=== PATIENT | female | born 1945 | race Caucasian/White ===

== ENCOUNTER 2018-05-27 00:52 | Outpatient (CLI) | payer MEDICARE, SELFPAY ==
--- NOTE | 2018-05-27 09:50 | DI.MAMMO_ITS ---
SYMPTOM/DIAGNOSIS: SCREENING, Z12.31 MAMMOGRAM: Mammograms were interpreted according to the usual protocol including computer analysis with CAD system, tomosynthesis and C view imaging. Comparison with prior examinations. Breast density C. No suspicious masses or microcalcifications are seen. There is no definite evidence of malignancy. IMPRESSION: Negative mammogram. Routine screening is recommended. Category I. MQSA ASSESSMENT OF FINDINGS: Negative. Category 1. Patient will receive a letter notifying them of these results. Bi-RADS category C. The breasts are heterogeneously dense, which may obscure small masses.
== END 2018-05-27 01:12 ==
PROVIDERS: PCP Family Medicine; Visit Provider Nurse Practitioner Family
DX: Z12.31 Encounter for screening mammogram for malignant neoplasm of breast (principal)
CPT/HCPCS: 77063; 77067

== ENCOUNTER 2020-06-09 16:30 | Outpatient (REF) | payer MEDICARE, SELFPAY ==
[2020-06-09 22:20] LABS: HCT 39.8 % (36.0-46.0); HGB 13.2 g/dL (11.2-15.7); MCH 33.2 pg (27.0-33.0); MCHC 33.2 % (32.0-36.0); MPV 10.5 fL (8.0-11.0); Platelet Count 248 10^3/uL (130-400); RBC 3.98 10^6/uL (3.93-5.22); RDW 12.1 % (11.7-14.6); RDW-SD 45.1 fL; WBC 5.93 10^3/uL (4.4-10.8)
[2020-06-09 22:25] LABS: ALT 28 U/L (14-59); AST 18 U/L (15-37); Albumin 3.9 g/dL (3.4-5.0); Alkaline Phosphatase 88 U/L (46-116); Anion Gap 10.2 mmol/L (3-11); BUN 22 mg/dL (7-18); Bilirubin, Total 0.3 mg/dL (0.2-1.0); CO2 25.8 mmol/L (21.0-32.0); CREATININE 1.12 mg/dL (0.55-1.02); Calcium 9.2 mg/dL (8.5-10.1); Calculated LDL 110 mg/dL (<100); Chloride 104 mmol/L (98-107); Cholesterol 225 mg/dL (<200); Estimated GFR 47.82 (mL/min/1.73m2); Glucose 94 mg/dL (74-106); HDL Cholesterol 89 mg/dL (40-60); Potassium 4.4 mmol/L (3.5-5.1); Sodium 140 mmol/L (136-145); Total Protein 7.2 g/dL (6.4-8.2); Triglyceride 134 mg/dL (<150)
[2020-06-10 04:52] LABS: Vitamin D 25 Total 53.1 ng/ml (30-100)
== END 2020-06-09 16:50 ==
LOC: NCHCN 16:30
PROVIDERS: PCP Family Medicine; Visit Provider Family Medicine
DX: E78.00 Pure hypercholesterolemia, unspecified (principal); R03.0 Elevated blood-pressure reading, without diagnosis of hypertension; G47.62 Sleep related leg cramps; M85.88 Other specified disorders of bone density and structure, other site; J45.20 Mild intermittent asthma, uncomplicated
CPT/HCPCS: 80053; 80061; 82306; 85027

== ENCOUNTER 2020-06-24 01:25 | Outpatient (CLI) | payer MEDICARE, SELFPAY ==
--- NOTE | 2020-06-24 | DI.MAMMO_ITS ---
EXAM: MG MAMMO SCREENING CLINICAL HISTORY: SCREENING, Z12.31 TECHNIQUE: Bilateral full field digital CC and MLO mammographic images were obtained with 3D tomosyn thesis and utilizing computer aided detection (CAD). COMPARISON: Available for comparison. FINDINGS: Masses/Architectural Distortion: None seen. Microcalcifications: No suspicious pleomorphic-type are seen. Skin Thickening/Nipple Retraction: None. IMPRESSION: 1. No significant interval change with no specific features of malignancy noted. 2. Unless there is more urgent need, screening mammography is recommended, as per [employer] guidelines. BI-RADS Category 1 - Negative Breast Density - Category C - Heterogeneously dense Breast density category C or D implies that the patient has dense breast tissue. Dense breast tissue is very common and is not abnormal but dense breast tissue can make it harder to find cancer on a ma mmogram. Also, dense breast tissue may increase their breast cancer risk. This information about the result of the mammogram report was provided to the patient to raise their awareness. Use this report when you speak with the patient about their risks for breast cancer, which includes their family hist ory. At that time, you may recommend for more screening tests (Ultrasound or MRI) as they might be us eful based on their risk. A negative radiographic report should not delay biopsy if a dominant or clinically suspicious mass is present. Up to ten percent of cancers are not identified on mammography. A negative report may reinforce clinical impression. Adenosis and dense breasts may obscure an underlying neoplasm. False positive reports average 6 to 10%. Patient will receive a letter notifying them of these results.
== END 2020-06-24 01:26 | disposition home or self-care (01) ==
LOC: DI 01:26
PROVIDERS: PCP Family Medicine; Visit Provider Family Medicine
DX: Z12.31 Encounter for screening mammogram for malignant neoplasm of breast (principal)
CPT/HCPCS: 77063; 77067

== ENCOUNTER 2020-08-13 03:58 | Outpatient (CLI) | payer MEDICARE, SELFPAY ==
--- NOTE | 2020-08-13 | DI.RAD_ITS ---
EXAM: XR CERVICAL SPINE COMP 4-5V CLINICAL HISTORY: NECK PAIN, M54.2 TECHNIQUE: COMPARISON: No exams were available for comparison FINDINGS: Five views were obtained. There is disc space narrowing at C5-6 and C6-7 consistent with disc degene ration. There are prominent hypertrophic degenerative changes of the facet joints throughout the cer vical region. Endplate hypertrophic changes also seen in the lower cervical spine. There is mild an tro listhesis of C4 on C5 estimated at 3-4 millimeters. There is no evidence of perched facet or fac et dislocation. No other focal bony abnormality seen. Neural foramina appear well maintained as visualized. IMPRESSION: Degenerative changes of the cervical spine as described above. RADIATION DOSE DELIVERED: Total DLP
== END 2020-08-13 04:18 ==
PROVIDERS: PCP Family Medicine; Visit Provider Family Medicine
DX: M54.2 Cervicalgia (principal); M50.322 Other cervical disc degeneration at C5-C6 level; M50.323 Other cervical disc degeneration at C6-C7 level
CPT/HCPCS: 72050

== ENCOUNTER 2022-10-02 17:45 | Outpatient (REF) | payer MEDICARE, SELFPAY ==
[2022-10-02 15:53] LABS: Anion Gap 3.6 mmol/L (3-11); BUN 16 mg/dL (7-18); CO2 28.4 mmol/L (21.0-32.0); CREATININE 0.8 mg/dL (0.55-1.02); Calcium 9.7 mg/dL (8.5-10.1); Chloride 105 mmol/L (98-107); Estimated GFR 76.79 (mL/min/1.73m2); Glucose 91 mg/dL (74-106); Sodium 137 mmol/L (136-145)
[2022-10-02 16:55] LABS: Bilirubin Negative (Negative); Blood Negative (Negative); Clarity Clear (Clear); Glucose Negative (Negative); Ketones Negative (Negative); Leukocyte Esterase Small (Negative); Nitrite Negative (Negative); Specific Gravity 1.015 (1.005-1.025); Urobilinogen 0.2 mg/dL (Up to 0.2)
[2022-10-02 17:35] LABS: Bacteria Rare HPF (Negative); C & S Indicated? Yes; Casts Negative LPF (Negative); Crystals Negative HPF (Negative); Epithelial Cells Rare HPF (Negative); Mucus Negative (Negative); Other Cells Rare Transitional (Negative); RBC Negative HPF (0-2)
== END 2022-10-02 17:46 | disposition home or self-care (01) ==
LOC: NCHCN 17:45
PROVIDERS: PCP Family Medicine; Visit Provider Internal Medicine
DX: I10 Essential (primary) hypertension (principal); R82.998 Other abnormal findings in urine
CPT/HCPCS: 80048; 81003; 81015; 87086

== ENCOUNTER 2022-12-05 01:35 | Outpatient (CLI) | payer MEDICARE, SELFPAY ==
--- NOTE | 2022-12-05 12:00 | DI.MAMMO_ITS ---
Exam(s) MAMMO SCREENING EXAM: MAMMO SCREENING CLINICAL HISTORY: SCREENING, Z12.31 TECHNIQUE: Bilateral full field digital CC and MLO mammographic images were obtained with 3D tomosyn thesis and utilizing computer aided detection (CAD). COMPARISON: Available for comparison. FINDINGS: Masses/Architectural Distortion: None seen. Microcalcifications: No suspicious pleomorphic-type are seen. Skin Thickening/Nipple Retraction: None. IMPRESSION: 1. No significant interval change with no specific features of malignancy noted. 2. Unless there is more urgent need, screening mammography is recommended, as per [employer] guidelines. BI-RADS Category 1 - Negative Breast Density - Category C - Heterogeneously dense Breast density category C or D implies that the patient has dense breast tissue. Dense breast tissue is very common and is not abnormal but dense breast tissue can make it harder to find cancer on a ma mmogram. Also, dense breast tissue may increase their breast cancer risk. This information about the result of the mammogram report was provided to the patient to raise their awareness. Use this report when you speak with the patient about their risks for breast cancer, which includes their family hist ory. At that time, you may recommend for more screening tests (Ultrasound or MRI) as they might be us eful based on their risk. A negative radiographic report should not delay biopsy if a dominant or clinically suspicious mass is present. Up to ten percent of cancers are not identified on mammography. A negative report may reinforce clinical impression. Adenosis and dense breasts may obscure an underlying neoplasm. False positive reports average 6 to 10%. Patient will receive a letter notifying them of these results.
== END 2022-12-05 01:55 ==
LOC: DI 01:35
PROVIDERS: PCP Family Medicine; Visit Provider Family Medicine
DX: Z12.31 Encounter for screening mammogram for malignant neoplasm of breast (principal)
CPT/HCPCS: 77063; 77067

== ENCOUNTER 2023-01-15 14:28 | Emergency (ER) | payer MEDICARE, SELFPAY ==
[2023-01-15 14:33] VITALS: BP 146/67; PULSE 84; RESP 18; TEMP 37.3; O2SAT 93
--- NOTE | 2023-01-15 14:45 | DI.RAD_ITS ---
Exam(s) XR HIP LT COMPLETE AP PELVIS XR FEMUR LT EXAM: XR HIP LT COMPLETE AP PELVIS INDICATION: fall hip and pelvis pain. COMPARISON: CR PELVIS AP from 06/20/2012 CR XR FEMUR LT from 01/15/2023 TECHNIQUE: 2D digital imaging was performed. Three views. FINDINGS: There is a left hip prosthesis which appears intact. There is no evidence of fracture. The knee is unremarkable as visualized. The SI joints appear intact. Degenerative changes are noted right SI juanis int. Intramedullary sepideh sepideh in the right femur partially visualized. Severe degenerative changes lo wer lumbar spine. IMPRESSION: No acute abnormality. DATA REPOSITORY: RADIATION DOSE DELIVERED:
--- NOTE | 2023-01-15 16:32 | W.ED.GENAD ---
Discharge Plan Disposition Patient Disposition: Home Discharge Details Clinical Impression: Injury of hip, left Primary Care Provider: Shirley Peña ED Provider: Ye Vega Home Meds and New Rx's Prescriptions: Continued triamcinolone acetonide 0.1 % cream 1 applic topical BID albuterol sulfate [ProAir HFA] 90 mcg/actuation HFA aerosol inhaler 2 puff inhalation Q6H PRN magnesium citrate 100 mg capsule 200 mg PO DAILY Rx Instructions: 200mg at bedtime omeprazole 20 mg capsule,delayed release(DR/EC) 20 mg PO DAILY 30 Days Qty: 30 0RF cholecalciferol (vitamin D3) [Vitamin D3] 1,000 UNIT capsule 1,000 unit PO DAILY Glucosamine-Chondroitin Complx Capsule 2 cap PO DAILY fluticasone propionate [Flovent HFA] 110 mcg/actuation HFA aerosol inhaler 110 mcg Inhalation BID PRN losartan-hydrochlorothiazide 50-12.5 mg tablet 1 tab PO DAILY Discontinued lisinopril 10 mg tablet 10 mg PO DAILY Patient Comments: not taking anymore Discharge Instructions Instructions: Hip Pain (ED) Additional Instructions: You may continue to use dlib-xli-fbozhvc pain medication as needed for discomfort. Please use walker until you are able to fully perform weightbearing activities without discomfort. If not improving in the next week or so please follow-up with your primary care provider for reassessment or return for new or worsening symptoms Referrals: Shirley Peña [Primary Care Provider] - 1 week (If not improving) Discharge Data Discharge Date/Time-TO BE ENTERED AT DEPARTURE: 01/15/23 16:52 Medical Decision Making Patient presenting to the emergency department for chief complaint of slip apples with falling landing on left hip. Patient denies any other injury or trauma. Does state history of a left hip replacement 11 years ago but denies no complications. Physical exam shows tenderness with weightbearing activities but no tenderness to palpation while patient is lying flat and resting. Given that patient is nonweightbearing we will perform radiological imaging. Patient denies any need for pain medication pending results Review of radiological imaging and radiologist interpretation shows no acute abnormalities noted. Patient recommended to continue to use dclr-nze-xucnjur pain medication and patient was sent home with a walker for stability and to help prevent reinjury or falling again. Patient to follow-up with primary care provider if not improving or return for new or worsening symptoms. After discussion of diagnosis and plan of care patient has no further needs, questions, or concerns and states clear understanding to return to the emergency department for any worsening symptoms. This documentation was generated using [employer] system, please disregard any oddities of phrase or misspellings. HPI General Mode of arrival: wheelchair. Date/Time Provider Initiated Documentation: 01/15/23 14:48. Limitations to Documentation: no limitations. Information obtained by: patient, family and RN notes reviewed. History of Present Illness 77 year old F presents to the emergency department with the chief complaint of Left hip pain, described as moderate and severe, Quality is described as sharp, and is localized to the left and lower extremity. Patient reports no radiation. Patient started experiencing this hour(s) (1) and it has been constant. No relieving factors improve symptom(s), No exacerbating factors reported . Patient notes no other symptoms.. Patient did receive the following treatments prior to arrival, none Related Data Home Medications Medication Instructions Recorded Confirmed cholecalciferol (vitamin D3) 25 1,000 unit PO DAILY 08/27/15 01/15/23 mcg (1,000 unit) capsule (Vitamin D3) albuterol sulfate 90 mcg/actuation 2 puff inhalation Q6H PRN 11/24/20 01/15/23 aerosol inhaler (ProAir HFA) fluticasone propionate 110 110 mcg inhalation BID PRN 11/24/20 01/15/23 mcg/actuation HFA aerosol inhaler (Flovent HFA) [id number] C-Mn 2 cap PO DAILY 11/24/20 01/15/23 capsule (Glucosamine-Chondroitin Complex capsule) magnesium citrate 100 mg capsule 200 mg PO DAILY 11/24/20 01/15/23 triamcinolone acetonide 0.1 % 1 applic topical BID 11/24/20 01/15/23 topical cream omeprazole 20 mg capsule,delayed 20 mg PO DAILY 30 days #30 caps 01/03/23 01/15/23 release losartan 50 mg-hydrochlorothiazide 1 tab PO DAILY 01/15/23 01/15/23 12.5 mg tablet Previous Rx's Medication Instructions Recorded omeprazole 20 mg capsule,delayed 20 mg PO DAILY 30 days #30 caps 01/03/23 release Allergies Allergy/AdvReac Type Severity Reaction Status Date / Time bacitracin Allergy Verified 01/15/23 14:36 [From Neosporin ([id number])] neomycin Allergy Verified 01/15/23 14:36 [From Neosporin ([id number])] polymyxin B Allergy Verified 01/15/23 14:36 [From Neosporin ([id number])] General Stated Complaint: Orthopedic VANDANA: 3 Review of Systems Constitutional Constitutional: Denies daytime sleepiness and Denies headache(s) Eyes Eyes: Denies change in vision ENT Ears, Nose, Mouth, and Throat: Denies headache(s) Cardiovascular Cardiovascular: Denies chest pain, Denies syncope and Denies dyspnea Respiratory Respiratory: Denies dyspnea Gastrointestinal Gastrointestinal: Denies abdominal pain, Denies nausea and Denies vomiting Musculoskeletal Musculoskeletal: Reports as per HPI, Reports arthralgias, Reports limited range of motion, Denies numbness and Denies tingling Integumentary/Breasts Skin/Breast: Denies unusual bruising and Denies wounds Neurologic Neurologic: Denies syncope, Denies headache(s), Denies numbness and Denies tingling PFSH All Active Problems Injury of hip, left (Acute) GERD (gastroesophageal reflux disease) (Chronic) Medical History Abnormal auditory perception Asthma, mild intermittent Femur fracture, right Hoarseness HTN (hypertension) Hypercholesterolemia Leg cramps Neck pain Osteoarthritis of left hip Pain, joint, knee, right Sensorineural hearing loss Surgical History Colonoscopy - IV Sedation (12/08/15) H/O total hip arthroplasty left hip History of removal of skin mole Tubal Ligation, Laparoscopic Family History Mother Asthma Father Heart disease Social History Smoking/Tobacco Use Status: Former Tobacco Use Smoking risk assessment performed?: Yes Alcohol Intake: current Alcohol Intake frequency: 0-2 drinks per day Drug use: Never Substance use type: does not use Household members: spouse Housing: house Number of Children: 2 current occupation: Retired What type of physical activity do you participate in: walking and independent ambulation Exam Const General: cooperative, no acute distress and not ill appearing Orientation: alert, awake and oriented x3 HENMT Mouth: moist mucous membranes Resp Effort & Inspection: normal respiratory effort, able to speak in complete sentences and no respiratory distress Cardio Rate: regular rate Rhythm: regular rhythm Skin General skin exam: no rashes or lesions noted Neuro General: patient alert, patient awake, patient oriented x3, moves all extremities and no focal motor deficits Sensory Exam: no sensory deficits noted Extrem Left lower extremity: hip/thigh Details: normal to inspection and other (Tenderness with); no tenderness, no ecchymosis and no crepitus Course Vital Signs Vital signs: Vital Signs Temperature 37.3 C 01/15/23 14:33 Pulse 84 01/15/23 14:33 Respiratory Rate 18 01/15/23 14:33 Blood Pressure 146/67 H 01/15/23 14:33 Pulse Oximetry 93 01/15/23 14:33 Temperature 37.3 C 01/15/23 14:33 Temperature Source Temporal Artery Scan 01/15/23 14:33 Pulse 84 01/15/23 14:33 Respiratory Rate 18 01/15/23 14:33 Blood Pressure 146/67 H 01/15/23 14:33 Blood Pressure Position Sitting 01/15/23 14:33 Pulse Oximetry 93 01/15/23 14:33 Oxygen Delivery Method Room Air 01/15/23 14:33 Oxygen Flow Rate 0 01/15/23 14:33
== END 2023-01-15 16:52 | disposition home or self-care (01) ==
PROVIDERS: Emergency Provider Nurse Practitioner Family; PCP Family Medicine
DX: S79.912A Unspecified injury of left hip, initial encounter (principal); W01.0XXA Fall on same level from slipping, tripping and stumbling without subsequent striking against object, initial encounter
CPT/HCPCS: 73552; 99284; 73502; 99283

== ENCOUNTER → 2023-08-06 09:51 | Outpatient (BNVA) | payer MEDICARE, SELFPAY | PROVIDERS: PCP Family Medicine; Referring Provider Family Medicine; Visit Provider Surgery | DX: K21.9 Gastro-esophageal reflux disease without esophagitis (principal); R49.0 Dysphonia | CPT/HCPCS: 99214 ==

== ENCOUNTER 2023-08-10 10:04 | Day surgery (SDC) | payer MEDICARE, SELFPAY ==
--- NOTE | 2023-08-09 13:01 | W.PM.ENDDOP ---
Date of service: 08/10/23 Time of Service: 11:32 Endoscopy Report DATE OF PROCEDURE: 08/10/23 PRE-OP DIAGNOSIS: Medication refractory GERD POST-OP DIAGNOSIS: same (Mild gastritis and esophagitis and hiatal hernia) SURGEON: Maria Eugenia Vazquez ANESTHESIA TYPE: General:No Airway ESTIMATED BLOOD LOSS: 1 PATHOLOGY: other COMPLICATIONS: None DISPOSITION: same day PROCEDURE DESCRIPTION: After informed consent was obtained the patient was take to the procedure room and placed in a supine position. Monitors were applied and a time out was done. The patients name, date of , procedure type, allergies to medications and metal in their body was reviewed. A bite block was placed and the patient was sedated. Once sedated and comfortable the gastroscope was advanced through the oropharynx which was grossly normal into the esophagus. The proximal and mid-esophagus were normal. In the distal esophagus there was mild esophagitis noted. 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 There is no esophageal varices/diverticula masses or stricture noted. The scope was advanced into the stomach and through the pylorus into the 3rd portion of the duodenum. The duodenum was noted to be normal. Biopsies were done, all specimen is retrieved and no bleeding is noted. The scope was retracted back into the stomach and biopsies were done to rule out H. pylori. There were mild gastritis at the antrum radiating out in a striped fashion. There are no ulcers. Ulcers. The scope was retroflexed. The cardia and fundus were noted to be normal. The hiatus is quite patulous as well. There 4 cm sliding-type hiatal hernia noted. The scope was retracted back into the esophagus and biopsies were done of the GE junction to rule out Ozuna's. The Z line was irregular. The GE junction was at 40 cm. The scope was removed and the patient was woken up and taken back to [facility] in stable condition.
--- NOTE | 2023-08-09 13:08 | PDOC.DSDIS_ITS ---
Date of service: 08/10/23 Time of Service: 11:39 Discharge Plan Disposition Patient Disposition: Home Condition: Good Discharge Details Reason For Visit: egd Attending Provider: Maria Eugenia Vazquez Primary Care Provider: Shirley Peña Home Meds and New Rx's Prescriptions: No Action triamcinolone acetonide 0.1 % cream 1 applic topical BID albuterol sulfate [ProAir HFA] 90 mcg/actuation HFA aerosol inhaler 2 puff inhalation Q6H PRN magnesium citrate 100 mg capsule 200 mg PO DAILY Rx Instructions: 200mg at bedtime pantoprazole [Protonix] 40 mg tablet,delayed release (DR/EC) 40 mg PO DAILY Qty: 30 3RF sucralfate [Carafate] 1 gram tablet 1 g PO HS Qty: 30 6RF cholecalciferol (vitamin D3) [Vitamin D3] 1,000 UNIT capsule 1,000 unit PO DAILY Glucosamine-Chondroitin Complx Capsule 2 cap PO DAILY fluticasone propionate [Flovent HFA] 110 mcg/actuation HFA aerosol inhaler 110 mcg Inhalation BID PRN losartan-hydrochlorothiazide 50-12.5 mg tablet 1 tab PO DAILY Discharge Instructions Additional Instructions: Post EGD Instruction ?You had anesthesia for your EGD/stomach scope today.? For your safety, please do the following for the next twenty-four (24) hours: Do Not operate a motor vehicle (car, truck, motorcycle, etc.) Do Not drink alcoholic beverages or use any recreational drugs for the first 24 hours or while taking pain medications. The medications in your body may have a reaction that can be dangerous. Do Not make any important decisions or sign any important papers You have just had a gastroscopy (EGD) or upper GI tract examination. It is important for your smooth recovery that you carefully follow the recommendations below. Do not hesitate to call if any questions should arise about your anesthesia, condition, or care. -Symptoms you may experience during the next 24 hours: ?1. Mild abdominal pain or excessive gas or a bloated feeling which improves with rest, liquids, eating? slightly, and walking as tolerated. 2. Drowsiness and/or forgetfulness because of the medications you were given. ?3. Throat numbness for about 1 hour. 4. A sore throat which you can treat with throat lozenges or by gargling with salt water 4-5 times a day. 5. Redness at the site of your IV which you can treat with warm compresses. SPECIAL INSTRUCTIONS: 1. You may resume your previous diet in one hour. We recommend a light meal to start, then progress as tolerated. 2. Restart regular medications in one hour. 3. No aspirin or non-steroidal containing medication for three days. 4. No lifting over 20 pounds or strenuous activity for the first 24 hours after your procedure. After 24 hours there are no restrictions on your activity, but you may feel fatigued for a few days. Findings:mild esophagitis/possible Ozuna's. Hiatal hernia- medium Treatment: -Medications: protonix and carafate -Continue to follow lifestyle modifications: No alcohol, tobacco products, Aspirin or NSAID's (ibuprofen, Motrin, Naprosyn, aleve, etc).? Try to limit/avoid:? soda pop/any carbonated beverages, caffeine (including tea & chocolate), and acidic foods, (tomatoes, citrus, onions, pep permints) spicy or fried/fatty foods. Do not lie down for 30 minutes after eating, and do not eat 2 hours prior to bedtime. Avoid wearing tight fitting clothing/ belts. Follow up: f/u in 2 wks time Call the office at [phone] (Office) or [phone] (Hospital), or go to the ER right away if you notice any of the followin. Vomiting blood and /or ?coffee ground? material. ?2. Worsening of abdominal pain or cramping. ?3. Trouble with breathing, cough, and/or fever (temperature above 101.5 F). 4. Increasing pain with swallowing. ?5. Chest pain. 6. Any new symptoms. 7. Worsening of the redness at the IV site Activity:: see above Diet:: see above Discharge Orders Discharge Orders: Discharge Order (Routine); Ordered 08/10/23 Ordered By: Maria Eugenia Vazquez DS: Diagnosis Discharge Diagnosis (1) GERD (gastroesophageal reflux disease): Status: Chronic (2) HTN (hypertension): (3) Hypercholesterolemia: (4) Sensorineural hearing loss: (5) Hoarseness: (6) Asthma, mild intermittent: (7) GERD with esophagitis: Status: Acute (8) Hiatal hernia with GERD: Status: Acute Asessment and Plan: Patient is seen and examined after they are endoscopy.? Patient has minimal sore throat.? They have been able to tolerate liquids.? They do not have any nausea vomiting.? They are not having any chest pain or shortness of breath.? They have been able to pass gas and are not having any abdominal pain or distention.? They have not vomited any blood.? The vital signs have been stable-see nursing notes. We discussed findings on their endoscopy. We reviewed the importance of lifestyle modification-see discharge instructions We reviewed any new medications that the patient may be prescribed-see discharge instructions Patient will either be sent a letter with the biopsy results or follow-up in the office-see discharge instructions. Patient was given explicit instructions to follow-up regarding post endoscopy- refer to discharge Patient verbalized understanding and discharged in stable and satisfactory co ndition.? See nursing notes.
[2023-08-10 10:20] VITALS: BP 146/73; PULSE 75; RESP 16; TEMP 36.5; O2SAT 97
[2023-08-10] MEDS: Lactated Ringers 1,000 ML 80 ML IV (10:25)
--- NOTE | 2023-08-10 10:40 | W.ANESPRE ---
General Info Date of Service Date Performed: 08/10/23 Height: 5 ft 4 in Weight: 80.91 kg Body Mass Index (BMI): 30.6 Surgical Procedure: Operation Date: 08/10/23 11:20 Proposed Procedure Side Surgeon p Gastroscopy Maria Eugenia Vazquez DO Actual Procedure Side Surgeon p Gastroscopy Not Applicable Maria Eugenia Vazquez, Pre-Op Diagnosis Post-Op Diagnosis egd Meds Allergies and Home Medications Allergies Allergy/AdvReac Type Severity Reaction Status Date / Time bacitracin Allergy sore lips Verified 08/10/23 10:14 [From Neosporin after ([id number])] using on lips neomycin Allergy sore on Verified 08/10/23 10:14 [From Neosporin lips after ([id number]-fgc-ougit)] using on lips polymyxin B Allergy sore on Verified 08/10/23 10:14 [From Neosporin lips after (mjb-xps-scuit)] using on lips Home Medication Medication Instructions Recorded cholecalciferol (vitamin D3) 25 1,000 unit PO DAILY 08/27/15 mcg (1,000 unit) capsule (Vitamin D3) albuterol sulfate 90 mcg/actuation 2 puff inhalation Q6H PRN 11/24/20 aerosol inhaler (ProAir HFA) fluticasone propionate 110 110 mcg inhalation BID PRN 11/24/20 mcg/actuation HFA aerosol inhaler (Flovent HFA) hgebyodzuiv-tmawunjzh-ecl C-Mn 2 cap PO DAILY 11/24/20 capsule (Glucosamine-Chondroitin Complex capsule) magnesium citrate 100 mg capsule 200 mg PO DAILY 11/24/20 triamcinolone acetonide 0.1 % 1 applic topical BID 11/24/20 topical cream losartan 50 mg-hydrochlorothiazide 1 tab PO DAILY 01/15/23 12.5 mg tablet pantoprazole 40 mg tablet,delayed 40 mg PO DAILY #30 tabs 08/06/23 release (Protonix) sucralfate 1 gram tablet (Carafate) 1 g PO HS #30 tabs 08/06/23 Current Visit Medications: Current Medications Generic Name Dose Route Start Last Admin Trade Name Freq PRN Reason Stop Dose Admin Hyoscyamine Sulfate 0.125 mg 08/10/23 00:55 Hyoscyamine 0.125 Mg Sl/Oral/Chew SL 09/09/23 00:54 DIRECTED PRN Ringer's Solution 1,000 mls @ 0 mls/hr 08/10/23 06:00 08/10/23 10:25 IV 09/08/23 23:59 80 mls/hr INFUSION WAGNER Administration IV Miscellaneous Supplies 1 each 08/10/23 06:00 Iv Access IV 09/08/23 23:59 DIRECTED WAGNER Ondansetron HCl 4 mg 08/10/23 00:55 Ondansetron 4 Mg/2 Ml Vial IVP 09/09/23 00:54 Q4H PRN PRN Nausea / Vomiting Sodium Chloride 0 ml 08/10/23 06:00 Normal Saline Flush 10 Ml Syr IV 09/08/23 23:59 PRN PRN Sodium Chloride 0 ml 08/10/23 06:00 Normal Saline 10 Ml Vial IJ 09/08/23 23:59 DIRECTED PRN Sterile Water 0 ml 08/10/23 06:00 Water,Injection,Sterile 10 Ml Vial IJ 09/08/23 23:59 DIRECTED PRN PFSH Active Problems Active Problems: Problem Status Onset Code GERD (gastroesophageal reflux disease) K21.9 Medical History Medical History Abnormal auditory perception Asthma, mild intermittent Femur fracture, right Hoarseness HTN (hypertension) Hypercholesterolemia Leg cramps Neck pain Osteoarthritis of left hip Pain, joint, knee, right Sensorineural hearing loss Medical History Comments:: Per pt. states her sister's BP bottoms out Surgical History Surgical History Colonoscopy - IV Sedation (12/08/15) H/O total hip arthroplasty left hip History of removal of skin mole Tubal Ligation, Laparoscopic Tobacco Smoking/Tobacco Use Status: Former Tobacco Use Alcohol Alcohol Intake: current Alcohol intake frequency: 0-2 drinks per day Substance Use Substance use: Never Substance use type: does not use Vital Signs and Lab Results Vital Signs Most Recent Vital Signs in EMR: Most Recent Vital Signs Temp Pulse Resp BP Pulse Ox 36.5 C 75 16 146/73 H 97 08/10/23 10:20 08/10/23 10:20 08/10/23 10:20 08/10/23 10:20 08/10/23 10:20 Lab Results Blood Type / Crossmatch: No Data to Display Complete Blood Count: No Data to Display Complete Metabolic Panel: No Data to Display Liver Function Panel: No Data to Display Coagulation Panel: No Data to Display Cardiac Panel: No Data to Display Arterial Blood Gas: No Data to Display Venous Blood Gas: No Data to Display Pancreas Panel: No Data to Display Thyroid Panel: No Data to Display Infectious Disease: No Data to Display Blood Cultures: No Data to Display Toxicology Panel: No Data to Display Anesthesia Assessment and Plan Anesthesia History Personal History: No History of Anesthesia Complications Family History: No Family History of Anesthesia Complications Exercise Tolerance Exercise Tolerance: Metabolic Equivalents>4 Pertinent Negatives Pertinent Negatives: No Major Cardiovascular Symptoms or Complaints, No Major Pulmonary Symptoms or Complaints and No History of CVA/TIA Cardiac & Pulmonary Exam Cardiac Exam: Normal S1/S2 Heart Sounds Pulmonary Exam: Clear Bilateral Breath Sounds Cardiac and Pulmonary Comment:: Albuterol inhaler used last noc Implantable Cardiac Device Does patient have a Pacemaker or an ICD?: No Airway Exam Known Difficult Airway: No Mallampati Class: 1 Mouth Opening: Normal (> 3cm) Thyromental Distance: Greater than 3 cm Neck Range of Motion: Full ROM Neck Circumference: Normal Teeth Condition: Normal Dentition and Loose or Chipped (few small chips, none loose) ASA Classification ASA Score: ASA 2 Emergency Case?: No NPO Status NPO Status: NPO Clears >2 hours, Solids >8 hours Anesthesia Plan Resuscitation Status: Full Code Anesthesia Technique: General Anesthesia Airway Planned: Natural Airway Monitors Used: Standard Monitors
[2023-08-10 10:55] VITALS: BMI 30.6
--- NOTE | 2023-08-10 11:09 | STOM_PTH ---
PATIENT: Evette Young LOC: [facility] U#:[id number] AGE/SX: 77/F ROOM: RE08/10/[address]: Maria Eugenia Vazquez : 1945 BED: DIS: 08/10/2023 SPEC #: [id number] RECD: 08/10/23 13:15 STATUS: [facility] #: [id number] MONICA: 08/10/23 11:[address]: Maria Eugenia Vazquez DEPT: Surgical Specimen RECD BY: Vanessa Beal ENTERED: 08/10/23 13:16 SP TYPE: STOMACH OTHR DR: Shirley Peña Tissues: 1 - BIOPSY BOWEL 2 - STOMACH BIOPSY 3 - STOMACH BIOPSY 4 - ESOPHAGUS BIOPSY Procedures: GROSS AND MICRO LEVEL 4 IMMUNOPEROXIDASE STAIN Comments: [id number]
[2023-08-10 11:26] VITALS: BP 116/71; PULSE 70; RESP 18; TEMP 36.4; O2SAT 94
--- NOTE | 2023-08-10 11:35 | W.ANESPOSTOP ---
Postoperative Evaluation Date, Time and Location Date Performed: 08/10/23 Time Performed: 11:35 Patient Location: Day Surgery Unit Vital Signs Most Recent Imported Vital Signs: Most Recent Vital Signs Temp Pulse Resp BP Pulse Ox 36.4 C L 70 18 116/71 94 08/10/23 11:26 08/10/23 11:26 08/10/23 11:26 08/10/23 11:26 08/10/23 11:26 Pain Score Most Recent Pain Score: Most Recent Pain Score Pain Level 0 08/10/23 11:26 Assessment Mental Status: Awake (Alert & Oriented to Patient Baseline) Airway and Respiratory Function: Patent airway with normal (patient baseline) respiratory exam Cardiovascular Function: Hemodynamically Stable Hydration Status: Adequately Hydrated Nausea & Vomiting: No Nausea or Vomiting Pain: Pt. Denies Any Pain Peripheral Nerve Block: Patient did not receive a nerve block
[2023-08-10 11:56] VITALS: BP 142/78; PULSE 64; RESP 16; TEMP 36.3; O2SAT 98
== END 2023-08-10 12:15 | disposition home or self-care (01) ==
LOC: SUR 10:05
PROVIDERS: PCP Family Medicine; Visit Provider Surgery
PROC: 0DJ68ZZ Inspection of Stomach, Via Natural or Artificial Opening Endoscopic (ICD-10-PCS; CPT 43235; principal; 2023-08-10 11:15)
DX: K21.00 Gastro-esophageal reflux disease with esophagitis, without bleeding (principal); K44.9 Diaphragmatic hernia without obstruction or gangrene; R49.0 Dysphonia; J45.20 Mild intermittent asthma, uncomplicated; I10 Essential (primary) hypertension; K31.89 Other diseases of stomach and duodenum; K22.89 Other specified disease of esophagus
CPT/HCPCS: 43239; 88305; 88361; J2001; J2704

== ENCOUNTER → 2023-08-22 14:47 | Outpatient (BNVA) | payer MEDICARE, SELFPAY | PROVIDERS: PCP Family Medicine; Referring Provider Family Medicine; Visit Provider Surgery | DX: Z48.815 Encounter for surgical aftercare following surgery on the digestive system (principal) | CPT/HCPCS: 99212 ==

== ENCOUNTER → 2023-12-24 10:19 | Outpatient (BNVA) | payer MEDICARE, SELFPAY | PROVIDERS: PCP Family Medicine; Referring Provider Family Medicine; Visit Provider Surgery | DX: K21.00 Gastro-esophageal reflux disease with esophagitis, without bleeding (principal); K44.9 Diaphragmatic hernia without obstruction or gangrene; R49.0 Dysphonia; J45.20 Mild intermittent asthma, uncomplicated | CPT/HCPCS: 99213 ==

== ENCOUNTER 2024-01-10 08:41 | Outpatient (REF) | payer MEDICARE, SELFPAY ==
--- OUTSIDE RECORDS SUMMARY | 2024-01-10 08:42 | XMS_ITS | Clinical Summary ---
Author Organization [facility] Address [address] [place] [address] Care Team Providers Care Lead Dental Assistant Name Role Phone Unknown, Provider Primary Care Provider Social History Tobacco Use Types Packs/Day Years Used Date Smoking Tobacco: Never Assessed Sex and Gender Information Value Date Recorded Sex Assigned at Not on file Gender Identity Not on file Sexual Orientation Not on file Plan of Treatment Health Maintenance Due Date Last Done Comments Hepatitis C Screen 1945 RSV Immunization ( o r 60+ Years) (1 - 1-dose 60+ series) 2007 Fall Risk Screening 09/12/2012 COVID-19 Vaccine ( season) 2023 Care Teams Lead Dental Assistant Relationship Specialty Start Date End Date Unknown, Provider, PCP - General 10/20/10
--- OUTSIDE RECORDS SUMMARY | 2024-01-10 08:43 | XMS_ITS | Encounter Summary ---
Author Organization Health system Address [address] [place] [address] Care Team Providers Care Activity Therapy Teacher Name Role Phone Unavailable Primary Care Provider Unavailabl e Encounter Details Date Type Department Care Team (Late st Contact Info) Description 08/08/2000 Results Only [facility] - [facility] [address] [place] [address] Arun Yun FNP [address] [place], [place] [id number] Social History Tobacco Use Types Packs/Day Years Used Date Smoking Tobacco: Never Assessed Sex and Gender Information Value Date Recorded Sex Assigned at Not on file Gender Identity Not on file Sexual Orientation Not on file documented as of this encounter Plan of Treatment Not on file documented as of this encounter Procedures Procedure Name Priority Date/Time Associated Diagnosis Comments CYTOPATHOLOGY Routine 08/08/2000 0:00 EST documented in this encounter Results * CYTOPATHOLOGY (08/08/2000 0:00 EST) Pathology Report: CYTOPATHOLOGY REPORT Reports generated via electronic interface contain original data; however they are lacking the format of the original report. Caution should be taken when reading/interpreti ng unformatted reports. Name: ? EVETTE ORTIZ ? Accession #: ? [id number] : ? 1945 (Age: 54) ??F ?Collect Date: ? 08/08/2000 Location: ? [facility] ? Receive Date: ? 08/10/2000 Provider: ?ARUN LONGP Copy to: ? Specimen/Source: ?Conventional Pap Test, Cervix/Endocervix Last Menstrual Period: ? Hormonal/Contracep tive Status: ? Prempro ? SPECIMEN ADEQUACY ? Satisfactory for evaluation. GENERAL CATEGORIZATION ? Within Normal Limits ? Document reviewed and electronically signed by: ? UNIQUE Mckinney(ASCP) ? Report Date: ??08/10/2000 12:44 End of Report [facility] 08/08/2000 08/10/2000 Arun DELAROSA PATHOLOGY ORDERABLES [facility] [address] [place] [address] documented in this encounter Visit Diagnoses Not on filedocumented in this encounter
--- OUTSIDE RECORDS SUMMARY | 2024-01-10 08:43 | XMS_ITS | Referral Summary ---
Author Organization [facility] Address [address] [place] [address] Care Team Providers Care Copy Holder Name Role Phone Unknown, Provider Primary Care Provider [phone] Social History Tobacco Use Types Packs/Day Years Used Date Smoking Tobacco: Never Assessed Sex and Gender Information Value Date Recorded Sex Assigned at Not on file Gender Identity Not on file Sexual Orientation Not on file Plan of Treatment Not on file Care Teams Copy Holder Relationship Specialty Start Date End Date Unknown, ProviderMD PCP - General 10/20/10
--- OUTSIDE RECORDS SUMMARY | 2024-01-10 08:43 | XMS_ITS | Encounter Summary ---
Author Organization [facility] Address [address] [place] [address] Care Team Providers Care Hand Tapper Name Role Phone Unavailable Primary Care Provider Unavailabl e Encounter Details Date Type Department Care Team (Late st Contact Info) Description 08/31/2004 Results Only [facility] - [place] [facility] [address] [place] [address] Arun Yun FNP [address] [place], [place] [phone] Social History Tobacco Use Types Packs/Day Years Used Date Smoking Tobacco: Never Assessed Sex and Gender Information Value Date Recorded Sex Assigned at Not on file Gender Identity Not on file Sexual Orientation Not on file documented as of this encounter Plan of Treatment Not on file documented as of this encounter Procedures Procedure Name Priority Date/Time Associated Diagnosis Comments CYTOPATHOLOGY Routine 08/31/2004 0:00 EDT documented in this encounter Results * CYTOPATHOLOGY (08/31/2004 0:00 EDT) Pathology Report: CYTOPATHOLOGY REPORT Reports generated via electronic interface contain original data; however they are lacking the format of the original report. Caution should be taken when reading/interpreti ng unformatted reports. Name: ? EVETTE ORTIZ ? Accession #: ? [id number] : ? 1945 (Age: 58) ??F ?Collect Date: ? 08/31/2004 Location: ? [facility] ? Receive Date: ? 09/02/2004 Provider: ?ARUN LONGP Copy to: ? Specimen/Source: ?ThinPrep Pap Test, Cervix/Endocervix Last Menstrual Period: ? many years ago Hormonal/Contracep tive Status: ? Prempro Other: ? HPVA - HPV testing requested if ASC-US on the current ThinPrep Pap test. ? SPECIMEN ADEQUACY ? Satisfactory for Evaluation - transformation zone component absent GENERAL CATEGORIZATION ? Negative for Intraepithelial Lesion or Malignancy ? Document reviewed and electronically signed by: ? Mary Rodriguez, [place](ASCP) ? Report Date: ??09/08/2004 14:33 End of Report [facility] 08/31/2004 09/02/2004 Arun LONGP PATHOLOGY ORDERABLES [facility] [address] [place] [address] documented in this encounter Visit Diagnoses Not on filedocumented in this encounter
--- OUTSIDE RECORDS SUMMARY | 2024-01-10 08:43 | XMS_ITS | Encounter Summary ---
[place] [address] Care Team Providers Care Supervisor Grinding Name Role Phone Britany uYn APRN Primary Care Provider [phone] Reason for Visit * Reason Comments Travel Consult Encounter Details Date Type Department Care Team (Late st Contact Info) Description 06/17/2014 3:30 PM EST Office [place] [phone] David Miranda RN Need for prophylactic vaccination and inoculation against viral hepatitis; Other specified counseling Discharge Disposition: Home Social History Tobacco Use Types Packs/Day Years Used Date Smoking Tobacco: Former Cigarettes Sex and Gender Information Value Date Recorded Sex Assigned at Not on file Gender Identity Not on file Sexual Orientation Not on file documented as of this encounter Last Filed Vital Signs Vital Sign Reading Time Taken Comments Blood Pressure 151/83 06/17/2014 3:16 PM EST Pulse 74 06/17/2014 3:16 PM EST Temperature 36.7 ??C (98.1 ??F) 06/17/2014 3:16 PM ES T Respiratory Rate 16 06/17/2014 3:16 PM EST Oxygen Saturation - - Inhaled Oxygen Concentration - - Weight 72.6 kg (160 lb) 06/17/2014 3:16 PM EST Height - - Body Mass Index - - documented in this encounter Patient Instructions * Patient Instructions* David Miranda RN - 06/17/2014 4:45 PM EST Today, you received the following vaccines: [] Flu shot (recommended annually) [] TDaP (good for 10 years) [] Td (good for 10 years) [] MMR (this is your one lifetime booster dose) [x] Hepatitis A* (first dose good for 6 months, need a booster anytime after 6 months) [] Hepatitis B* (series is a total of 3) [] IPV (polio - this is your adult lifetime booster) [] Meningococcal meningitis [] Pneumococcal [] Rabies* (series is a total of 3, Day 1, Day 7, and Day 21) [] Yellow fever (good for 10 yrs. Keep your yellow card w/ you when traveling as proof) [] Turkmen Encephalitis* (series of 2, Day 1 and Day 28) [] Typhoid IM (good for 2-3 years) [] Typhoid oral (Take 1 capsule every other day on am empty stomach x 4 doses. Keep in fridge. Goodfor 5 years) *Please remember to schedule your follow-up boosters, if indicated. Call us at [phone] to schedule an appointment for these vaccines. Today, you were also prescribed a medication for malaria prevention. Remember that meticulous insect precautions must be taken to prevent other insect borne illnesses (see handout) [] no malaria prophylaxis indicated for this itinerary [] Malarone - Start taking 1 day prior to travel to malaria risk area. Take daily while there and for 7 more additional days thereafter. Take this medication with food. [] Mefloquine or Chloroquine - Start 1 week prior to travel to a malaria risk area. Take once weekly while there and for 4 additional weeks thereafter. [] Doxycycline - Start 1 day prior to travel to malaria risk area. Take daily while there and for 28 additional days thereafter. We also sent a prescription for medicine to self treat for traveler;s diarrhea. Remember to carry all your medicines in your carry on luggage Additional Recommendations/Instructions: Have a great trip! [email or web address] [phone] documented in this encounter Progress Notes * Paras Brown MD - 06/25/2014 2:28 PM EST I agree with the recommendations of David Miranda after review of her note. * David Miranda RN - 06/17/2014 3:45 PM EST Adult Travel Note Reason for Visit: Evette Young is a 68 y.o. female who comes to travel clinic today for pre-travel evaluation, vaccination and traveler's health education. Trip Details: Destination countries (list from first to last): [place], [facility], [facility] Departure date: 07/02/14 Length of trip: 10 days Purpose of travel: pleasure Type of environment (urban or rural):rural Accommodations: cabin, screened windows Medical History: Patient Active Problem List Diagnosis Code ??? 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 History of adverse vaccine reactions: None. History of latex allergy: None. Not or . Medications: Current outpatient prescriptions:albuterol (PROVENTIL HFA;VENTOLIN HFA) 90 mcg/actuation HFA Aerosol Inhaler, Inhale 2 puffs into the lungs every 4 hours as needed for Wheezing. Use with spacer, Disp: , Rfl: ; GLUCOSAM SUL NA/CHONDR TOLEDO A NA (GLUCOSAMINE & CHONDROIT SUL.NA ORAL), Take by mouth. 1700/1000 Takes two daily, Disp: , Rfl: ; cholecalciferol, Vitamin D3, 1,000 unit Tablet, Take by mouth daily., Disp: , Rfl: CALCIUM CARBONATE/VITAMIN D3 (VITAMIN D-3 ORAL), Take by mouth. 1000 units daily, Disp: , Rfl: Allergies: Review of patient's allergies indicates no known allergies. Patient advised to carry all medications in carry on luggage. Travel Health and Safety Issues: A discussion of travel health hazards and safety issues was done, including the following topics: Traffic-accidents Crime Alcohol related issues Sun exposure/heat illness Schistosomiasis and other fresh water exposures Rabies HIV infections, Hepatitis TB Health insurance coverage/[employer] information Discussed food and water precautions and patient handout provided. The following strategies were recommended for the management of traveler's diarrhea according to severity: ??? For treatment of mild diarrhea: hydration and over the counter antidiarrheal recommended. ??? For treatment of diarrhea accompanied by fever or systemic illness: hydration and empiric treatment with antibiotic recommended. A prescription for cipro twice daily for three days, sent to pharmacy . ??? For severe or bloody diarrhea, or diarrhea accompanied by vomiting: patient advised to seek medical treatment. Vector-borne Disease Prevention Discussed insect bite prevention to reduce risk of malaria, dengue,chikungunya and other insect borne illnesses. Handout given. Malaria Risk: No malaria risk on this particular trip. Altitude: This trip does not involve high altitude. Highest altitude anticipated will be Discussed altitude sickness and prevention. Handout given. Prescription for Acetazolamide was sent to pharmacy Travel Clinic Immunization History and Orders There is no immunization history on file for this patient. 11/19/12 yellow fever meningococcal 12/02/12 Typhoid 12/02/12 oral Polio 12/02/12 Flu vaccine 04/06/14 Tdap 09/29/05 Immunizations to be given today: Hep A #1 Vaccine information sheets given Follow-up Recommendations: Patient advised to call travel clinic if they return from trip with any illness. Rabies: discussed animal avoidance, wound care and need for post-exposure Time spent in travel counselin min with spouse Note written by DAVID MIRANDA RN documented in this encounter Plan of Treatment Not on file documented as of this encounter Visit Diagnoses Diagnosis Need for prophylactic vaccination and inoculation against viral hepatitis Other specified counseling documented in this encounter Care Teams Supervisor Grinding Relationship Specialty Start Date End Date Britany Yun APRN [address] [place] [address] PCP - General 06/17/14 03/20/21 documented as of this encounter
--- OUTSIDE RECORDS SUMMARY | 2024-01-10 08:43 | XMS_ITS | Encounter Summary ---
Author Organization [facility] Address [address] [place] [address] Care Team Providers Care Swatch Maker Name Role Phone Unavailable Primary Care Provider Unavailabl e Encounter Details Date Type Department Care Team (Late st Contact Info) Description 12/20/2009 Results Only [facility] - [facility] ([facility] [address], [place] [address] Arun Yun FNP [address] [place], [place] [id number] Social History Tobacco Use Types Packs/Day Years Used Date Smoking Tobacco: Never Assessed Sex and Gender Information Value Date Recorded Sex Assigned at Not on file Gender Identity Not on file Sexual Orientation Not on file documented as of this encounter Plan of Treatment Not on file documented as of this encounter Procedures Procedure Name Priority Date/Time Associated Diagnosis Comments CYTOPATHOLOGY Routine 12/20/2009 0:00 EDT documented in this encounter Results * CYTOPATHOLOGY (12/20/2009 0:00 EDT) Pathology Report: CYTOPATHOLOGY REPORT ? Reports generated via electronic interface contain original data; ? however they are lacking the format of the original report. ? Caution should be taken when reading/interpreti ng unformatted reports. ? Name: ? EVETTE ORTIZ ? Accession #: ? [id number] ? : ? 1945 (Age: 64) ??F ?Collect Date: ? 12/20/2009 ? Location: ? [facility] ? Receive Date: ? 12/22/2009 ? Provider: ?ARUN DELAROSA ? Copy to: ? Specimen/Source: ?Pap Test, Endocervix, ThinPrep Imaging System with ? manual evaluation ? Last Menstrual Period: ? clarissa ? Menstrual/Pregnanc y Status: ? Post Menopausal ? Hormonal/Contracep tive Status: ? Tubal ligation: s/p ? Other: ? HPVA - HPV testing requested if ASC-US on the current ThinPrep Pap test. ? SPECIMEN ADEQUACY ? Satisfactory for Evaluation ? - transformation zone component present ? GENERAL CATEGORIZATION ? Negative for Intraepithelial Lesion or Malignancy ? Document reviewed and electronically signed by: ? Alondra Ivey, SCT(ASCP) ? Report Date: ??12/24/2009 11:24 ? End of Report ? [facility] 12/20/2009 12/22/2009 Arun Yun THERMODYNAMICS TEACHER PATHOLOGY ORDERABLES [facility] [address] [place] [address] documented in this encounter Visit Diagnoses Not on filedocumented in this encounter
--- OUTSIDE RECORDS SUMMARY | 2024-01-10 08:43 | XMS_ITS | Encounter Summary ---
Author Organization [facility] Address [address] [place] [address] Care Team Providers Care Major Gifts Director Name Role Phone Unavailable Primary Care Provider Unavailabl e Encounter Details Date Type Department Care Team (Late st Contact Info) Description 08/02/2010 Results Only [facility] Laboratory Services - [facility] ([facility] [place] [address], [place] [id number] Lyle Oliver, DO [address] [facility] [address] [place], [place] [id number] Social History Tobacco Use Types Packs/Day Years Used Date Smoking Tobacco: Never Assessed Sex and Gender Information Value Date Recorded Sex Assigned at Not on file Gender Identity Not on file Sexual Orientation Not on file documented as of this encounter Plan of Treatment Not on file documented as of this encounter Procedures Procedure Name Priority Date/Time Associated Diagnosis Comments SURGICAL PATHOLOGY Routine 08/02/2010 0:00 EDT documented in this encounter Results * SURGICAL PATHOLOGY (08/02/2010 0:00 EDT) Pathology Report: SURGICAL PATHOLOGY REPORT ? Reports generated via electronic interface contain original data; ? however they are lacking the format of the original report. ? Caution should be taken when reading/interpreti ng unformatted reports. ? Name: ? ANGEL, EVETTE ? Accession #: ? [id number] ? : ? 1945 (Age: 64) ??F ? Collect Date: ? 08/02/2010 ? Location: ? [facility] ? Receive Date: ? 08/03/2010 ? Provider: LYLE OLIVER DO ? Copy to: ARUN FERGUSON [employer] ? Final Pathologic Diagnosis: ? Colon, 30 cm, polyp, biopsies: ? - Fragments of hyperplastic polyp; no adenoma. ? Document reviewed and electronically signed by: ? Ranjana Costa MD ? Report ??Date: 08/05/2010 12:22 ? By the signature above, the attending physician certifies that he/she has ? personally conducted a gross and/or microscopic examination of the described ? specimens and rendered or confirmed the above diagnosis. ? Specimen(s) Received: ? Polyp at 30 cm ? Clinical History: ? Colon cancer screen, hx of tubular adenoma ? Gross Description: ? Received in formalin labelled Evette Young and anabel at 30 cm ?? are four pink-garcia, irregular soft tissues ranging from 0.2 x 0.2 x 0.2 cm to 0.4 x 0.3 x 0.2 cm, submitted in toto as (A1) and (A2). (Jenn Nicole)/[facility] ? End of Report ? NUBIA CONCEPCION 08/02/2010 08/03/2010 8:2 9 EDT Lyle Oliver DO PATHOLOGY ORDER ARLET [facility] [address] [place] [address] documented in this encounter Visit Diagnoses Not on filedocumented in this encounter
--- OUTSIDE RECORDS SUMMARY | 2024-01-10 08:43 | XMS_ITS | Encounter Summary ---
[place] [address] Care Team Providers Care Weathercaster Name Role Phone Yash Bolanos MD Primary Care Provider [phone] Reason for Visit * Reason Comments Dermatitis Encounter Details Date Type Department Care Team (Late st Contact Info) Description 10/24/2011 4:45 PM EDT Office Visit Dermatology [address] [place] [address] [address] [place] [address] Javed Barr MD [address], [place] [address] Psoriasiform dermatitis (Primary Dx) Social History Tobacco Use Types Packs/Day Years Used Date Smoking Tobacco: Never Sex and Gender Information Value Date Recorded Sex Assigned at Not on file Gender Identity Not on file Sexual Orientation Not on file documented as of this encounter Progress Notes * Javed Barr MD - 10/24/2011 5:24 PM EDT Problem: Dry, scaly hands for greater than one year. Arline is a 66-year-old woman whom I last saw in August 2009 for lip dermatitis. That issue has apparently resolved, but now for the last year she has been having itchy, dry, scaling areas on the palms of both hands but also has a dry patch that itches on the nape of her neck occasionally and also on the lower presacral back. If she uses triamcinolone cream for the neck and back sites, they are much relieved; however, neither triamcinolone cream nor ointment nor desoximetasone cream have helped the palmar hand rash. The patient states that neither she nor any of her six siblings have any known history of psoriasis in their parents. There is a history of eczema. The patient denies any change of her soaps, skincare products, etc. She has tried using emu oil, but this is too greasy really to use on her hands too much. She has been more for using Vaseline Intensive Care moisturizer. Physical examination reveals a pleasant, 66-year-old woman who has dry, patchy, minimally scaly skin present over the palmar aspects of both hands, not extending onto the plantar fingers. She has a suggestion of some pitting on one of her nails, but no definitive fingernail pitting. She does have thin, erythematous patch plaques, slightly lichenified, one on the left nape of the neck just below the hairline and one centered over the lower presacral back and pre thoracic back. She has no stigmata of psoriasis on the elbows or knees. 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 a. Discussed diagnosis. b. Patient notes that this does improve in the summer and worsens in the winter. c. I recommended CeraVe cream as an emollient approach for hands. She may certainly still use triamcinolone for neck and back sites. d. For hands, I recommended Cutar lotion, applying on a nightly basis, and then applying either desoximetasone cream or, on other nights, just the CeraVe cream. The patient prefers to try to stay away from topical steroids. e. I encouraged the patient not to dig and scratch too much at her itchy palmar hands, but instead use the appropriate topicals. She will let me know how things proceed with this. f. Return to the clinic here will be on a p.r.n. basis. We discussed the utility of swimming in the salt water or even in a freshwater leary and getting a little bit of sun to help with this problem. Copy: Shayan OscarRCandice documented in this encounter Plan of Treatment Not on file documented as of this encounter Visit Diagnoses Diagnosis Psoriasiform dermatitis- Primary Other psoriasis and similar disorders documented in this encounter Care Teams Weathercaster Relationship Specialty Start Date End Date Yash Bolanos MD [address] [place] [address] PCP - General 04/12/10 06/16/14 documented as of this encounter
--- OUTSIDE RECORDS SUMMARY | 2024-01-10 08:43 | XMS_ITS | Encounter Summary ---
Author Organization [facility] Address [address] [place] [address] Care Team Providers Care Eviction Specialist Name Role Phone Unavailable Primary Care Provider Unavailabl e Encounter Details Date Type Department Care Team (Late st Contact Info) Description 09/19/2006 Results Only [facility] - [facility] [address] [place] [address] Arun Yun FNP [address] [place], [place] [id number] Social History Tobacco Use Types Packs/Day Years Used Date Smoking Tobacco: Never Assessed Sex and Gender Information Value Date Recorded Sex Assigned at Not on file Gender Identity Not on file Sexual Orientation Not on file documented as of this encounter Plan of Treatment Not on file documented as of this encounter Procedures Procedure Name Priority Date/Time Associated Diagnosis Comments CYTOPATHOLOGY Routine 09/19/2006 0:00 EDT documented in this encounter Results * CYTOPATHOLOGY (09/19/2006 0:00 EDT) Pathology Report: CYTOPATHOLOGY REPORT Reports generated via electronic interface contain original data; however they are lacking the format of the original report. Caution should be taken when reading/interpreti ng unformatted reports. Name: ? EVETTE ORTIZ ? Accession #: ? [id number] : ? 1945 (Age: 61) ??F ?Collect Date: ? 09/19/2006 Location: ? [facility] ? Receive Date: ? 09/20/2006 Provider: ?ARUN YUN MRI TECHNICIAN Copy to: ? Specimen/Source: ?ThinPrep Pap Test, Cervix/Endocervix, processed on [employer] ThinPrep Imaging System, with manual evaluation Last Menstrual Period: ? CIPRIANO Hormonal/Contracep tive Status: ? Prempro Other: ? HPVA - HPV testing requested if ASC-US on the current ThinPrep Pap test. ? SPECIMEN ADEQUACY ? Satisfactory for Evaluation - transformation zone component present GENERAL CATEGORIZATION ? Negative for Intraepithelial Lesion or Malignancy ? Document reviewed and electronically signed by: ? UNIQUE Llamas(ASCP) ? Report Date: ??09/25/2006 09:07 End of Report NUBIA CONCEPCION 09/19/2006 09/20/2006 Arnu LONGP PATHOLOGY ORDERABLES [facility] [address] [place] [address] documented in this encounter Visit Diagnoses Not on filedocumented in this encounter
--- OUTSIDE RECORDS SUMMARY | 2024-01-10 08:43 | XMS_ITS | Encounter Summary ---
Author Organization [facility] [place] [address] Care Team Providers Care Ecd Name Role Phone Shirley Peña MD Primary Care Provider [phone] Reason for Visit * Reason Comments Travel Consult Encounter Details Date Type Department Care Team (Late st Contact Info) Description 03/21/2021 2:00 PM EDT Office [place] [address] Dolly Rice [facility] INFECTI[place] [address] Need for prophylactic vaccination with typhoid-paratyphoid (TAB) vaccine; Counseling for travel Social History Tobacco Use Types Packs/Day Years Used Date Smoking Tobacco: Former Cigarettes Sex and Gender Information Value Date Recorded Sex Assigned at Not on file Gender Identity Not on file Sexual Orientation Not on file documented as of this encounter Patient Instructions * Patient Instructions* Dolly Rice APRN - 03/21/2021 2:00 PM EDT Today, you received the following vaccine(s): [x] Typhoid IM (good for 2-3 years) Your PCP has already prescribed a medication for malaria prevention. Remember that meticulous insect precautions must be taken to prevent other insect borne illnesses (see handout) [x] Malarone - Start taking 1 day prior to travel to malaria risk area. Take daily while there and for 7 more additional days thereafter. Take this medication with food. Remember to carry all your medicines in your carry on luggage Have a great trip! documented in this encounter Progress Notes * Dolly Rice APRN - 03/21/2021 2:00 PM EDT Adult Travel Clinic Reason for Visit: Evette Young is a 75 y.o. female patient who comes to travel clinic today for pre-travel evaluation, vaccination and traveler's health education. Traveler reports previous international travel experience ([place], [employer], [place]) Trip Details: Destination countries (list from first to last): [place] Departure date: 03/30/2021 Length of trip: 1 week Purpose of travel: pleasure Type of environment: hotels, on boat 2 nights in [place], cruise [facility] Accommodations: air conditioned rooms Medical History: Medical problems: Patient Active Problem List Diagnosis Code ??? Psoriasiform dermatitis L30.8 Current Outpatient Medications Medication Sig Dispense Refill ??? albuterol (PROVENTIL HFA;VENTOLIN HFA) 90 mcg/actuation HFA Aerosol Inhaler Inhale 2 puffs intothe lungs every 4 hours as needed for Wheezing. Use with spacer ? ? GLUCOSAM SUL NA/CHONDR TOLEDO A NA (GLUCOSAMINE & CHONDROIT SUL.NA ORAL) Take by mouth. 1700/1000 Takes two daily ??? CALCIUM CARBONATE/VITAMIN D3 (VITAMIN D-3 ORAL) Take by mouth. 1000 units daily ??? cholecalciferol, Vitamin D3, 1,000 unit Tablet Take by mouth daily. No current facility-administered medications for this visit. Immunosuppression: none History of adverse vaccine reactions: no History of latex, egg or beesting allergy: no or : denies Patient advised to carry all medications in carry on luggage. Travel Health and Safety Issues: A discussion of travel health hazards and safety issues was done, including the following topics: traffic-accidents (alcohol, seatbelts), crime, alcohol related issues, sun exposure/heat illness, Schistosomiasis and other fresh water exposures, rabies, HIV infections, Hepatitis and other STD's, control, TB, Health Insurance coverage/[employer]. Discussed food and water precautions and patient handout provided. The following strategies were recommended for the management of traveler's diarrhea according to severity: ?? For treatment of mild diarrhea: hydration and over the counter antidiarrheal recommended. ?? For treatment of diarrhea accompanied by fever or systemic illness: hydration and empiric treatment with antibiotic recommended. A prescription for Ciprofloxacin 500 mg twice daily x 3 days already Prescribed by PCP. Discussed antibiotic use, resistance and colonization issues. Advised to use antibiotics only for more severe symptoms, fever or worsening diarrhea. ?? For severe or bloody diarrhea, or diarrhea accompanied by vomiting: patient advised to seek medical treatment. Vector-borne Disease Prevention Discussed insect bite prevention to reduce risk of malaria, dengue, chikungunya and other insect borne illnesses. Handout given. Malaria Risk: Significant risk of malaria on this itinerary. Discussed malaria chemoprophylaxis and possible sideeffects. Prescription for malarone was already prescribed by PCP and was given to the patient. Altitude: This trip does not involve high altitude. Will not be traveling to high altitude areas this trip. Immunizations Immunization History Administered Date(s) Administered ??? Hepatitis A Vaccine, Adult 06/17/2014 Immunizations given today- Typhoid IM Traveler is up to date with routine vaccinations including: Hep A (2006, 2014), Yellow fever (1992), PCV (2015), PPSV23 (2013), polio (1992), Td 2015, Tdap 2005, Zoster 2008, meningococcal 1992, oraltyphoid 2006, Moderna x 3 (2020), influenza (2020) Rabies- discussed animal avoidance, wound care and need for post-exposure prophylaxis. Traveler given an official International Certificate of Vaccine or Prophylaxis (ICVP) for vaccine(s) received, and advised to carry original card with travel. COVID-19 Discussed traveler's concerns around coronavirus and travel, including vaccination. Has arranged pre-travel COVID testing through [facility] on 03/28 and again in [place] on 04/02. Travel group will arrange testing prior to leaving for home at the end of the trip. Stressed importance of practicing excellent hand hygiene and cough etiquette. Emphasized observing standard measures for general flu / virus avoidance including social distancing and not touching your face. Encouraged bringing disinfecting wipes to clean airplane nest (seatbelt buckle, TV monitor, tray table and arm rests). Recommend CDC website for latest recommendations specific to travel and coronavirus. The traveler is advised to check with the embassy of the countries the traveler plans to visit in order to comply with requirements. Recommended enrollment is the Smart Traveler Enrollment Program (STEP) offered through the [employer] so traveler is notified of any changing developments that occur in relation to planned itinerary. Follow-up Recommendations: Advised traveler to contact [facility] if travel plans change or other concerns arise. Patient advised to call travel clinic if they return from trip with any illness. Time spent in travel counselin minutes. Vaccine information sheets given. documented in this encounter Plan of Treatment Not on file documented as of this encounter Visit Diagnoses Diagnosis Need for prophylactic vaccination with typhoid-paratyphoid (TAB) vaccine Need for prophylactic vaccination with typhoid-paratyphoid alone (TAB) Counseling for travel Other specified counseling documented in this encounter Care Teams Ecd Relationship Specialty Start Date End Date Shirley Peña MD [address] [place] [address] PCP - General Family Medicine 03/21/21 documented as of this encounter
--- OUTSIDE RECORDS SUMMARY | 2024-01-10 08:43 | XMS_ITS | Data Portability ---
Author Organization [facility] Address [address] [place] [address] Assessment No assessment recorded. Plan of Treatment Reminders Order Date Submit Date Provider Last Modified By Organization Details Last Modified Time Details Appointments Nurse Visit 30 2023 08:30A M Not available Not available Not available Medicare Annual Wellness 40 2023 11:30A M Not available Not available Not available Lab vitamin D, 25-hydrox y, total, serum - 1Y, 1P 2023 024 [facility] (Registration ), [address] [place] [address] [place], [address], 01/10/2024 08:35:22 lipid panel, serum - 1Y, 1P 2023 024 [facility] (Registration ), [address] [place] [address] [place], [address], 01/10/2024 08:35:22 CMP, serum or plasma - 1Y, 2023 024 [facility] (Registration ), [address] [place] [address] [place], [address], 01/10/2024 08:35:22 CBC - 1Y, 2023 024 [facility] (Registration ), [address] [place] [address] [place], [address], 01/10/2024 08:35:22 Referral None recorded. Procedures None recorded. Surgeries None recorded. Imaging None recorded. Medication Orders None recorded. Patient TargetsNo targets recorded. Patient InstructionsNo instructions recorded. Reason for Referral None Reported. Results Created Date Observation Date Name Description Value Unit Range Abnormal Flag LastModifiedBy Organization Detail LastModifiedTime Result Notes None recorded. Problems Name Status Onset Date Resolution Date Notes Provider Name and Address Organization Details Recorded Time Pure hypercholeste rolemia Active 200106/09/2020 - Comments only - Abby Peña MD - I did go over her last 2 cholesterol profiles she does indeed have some elevated LDLs again the recommendatio n is to treat those. She states she has been much better about her diet she would like to get those drawn and we will send her letter in the mail with the results. Problem Code: E78.0; Problem Code Type: ICD-10; MD [address], [place], [address] , [facility] 4 12:05:57 Mild intermittent asthma Active 200706/09/2020 - Comments only - Abby Peña MD - Patient has mild intermittent asthma. She states for the most part she seldom has to use her inhalers as long as she uses the Flovent on a regular basis. She is going to try to send for those with a mail-in pharmacy to see if she can get a better jeronimo. Problem Code: J45.20; Problem Code Type: ICD-10; MD [address], [place], [address] , [facility] 4 12:05:57 Sensorineural hearing loss Active 201201/08/2023 - Comments only - Abby Peña MD - Patient reports that she did try some hearing aids they were on a trial basis very were quite costly she was given the option to try them for 3 months and if she did not feel they were helpful she could return him and she did. Said she did not really notice much of a difference. Problem Code: H90.5; Problem Code Type: ICD-10; MD [address], [place], [address] , [facility] 12:05:57 Idiopathic osteoarthriti s Active 201106/26/2022 - Comments only - Abby Peña MD - Patient is status post a left hip replacement at least 10 years ago. She is now beginning to feel as if it is achy especially at night but is beginning to be a little bit more so during the day as well. Organomegaly referral for her to see physical therapy to see if there is something they can do that would be helpful. If this continues to be problematic we would have her see orthopedics. Problem Code: M16.12; Problem Code Type: ICD-10; MD Jim [address], [facility] [address] , [facility] 12:05:57 Adult health examination Completed 201506/02/2015 Problem Code: Z00.00; Problem Code Type: ICD-10; MD Jim [address], [facility] [address] , [facility] 12:05:57 Adult health examination Active 201501/08/2023 - Comments only - Abby Peña MD - Evette Young is a healthy active 77-year-old female comes in today for a well exam. She is up-to-date with her screenings including her mammogram. And colonoscopies . Her immunizations are up-to-date as well. She sees her dentist every 6 months and to her eye doctor yearly. She reports that she has been working on a low-salt diet and she does exercise 3 times a week. She does try to walk a little as well. Problem Code: Z00.00; Problem Code Type: ICD-10; MD [address], [place], [address] , [facility] 4 12:05:57 Pain of right knee joint Active 2017 Problem Code: M25.561; Problem Code Type: ICD-10; MD Jim [address], [facility] [address] , [facility]. 4 12:05:57 Essential hypertension Active 201701/08/2023 - Comments only - Abby Peña MD - She brings in blood pressure readings and for the most part she is at least 50% of them are at or below goal. The others are just at or slightly above goal. We discussed that we could increase the losartan hydrochloroth iazide into to get the mole below are at goal but then she might have some really significant lows. We discussed her her options at this point probably would be best if she tried to cut the salt back a little more and to exercise a little more and try to drop a few pounds that might get those few history higher numbers back into a more acceptable range. She would prefer to do that instead of starting or increasing her medication. Problem Code: I10; Problem Code Type: ICD-10; MD [address], [place], [address] , [facility] 4 12:05:57 Cramp in lower limb associated with sleep Active 202006/09/2020 - Comments only - Abby Peña MD - Patient reports that he has nocturnal leg cramps if she does not take her magnesium. She is currently taking 1 in the morning and 2 in the evening and that keeps her from having charley horses in the middle the night. States that also loses of her bowels a little bit. Problem Code: G47.62; Problem Code Type: ICD-10; MD Jim [address], [place], [address] , [facility] 4 12:05:57 Neck pain Active 2020 Problem Code: M54.2; Problem Code Type: ICD-10; MD [address], [place], [address] , [facility] 4 12:05:57 Upper respiratory tract infection caused by Influenza virus Completed 202105/18/2022 Problem Code: J10.1; Problem Code Type: ICD-10; Not Available [facility] 3 05:18:41 Exacerbation of intermittent asthma Completed 202105/18/2022 Problem Code: J45.21; Problem Code Type: ICD-10; Not Available [facility] 3 05:18:42 Atrophic vaginitis Active 2022 Problem Code: N95.2; Problem Code Type: ICD-10; MD Jim [address], [place], [address] , [facility] 4 12:05:57 Eczema Active 202209/01/2022 - Comments only - Abby Peña MD - Discussed with the patient that the itching that she is experiencing after wiping is probably related to do things. She does have a small patch of eczema that is just to the left of the urethra she does have an area of vaginal atrophy there is well and a small patch of what appears to be eczema on the right labia as well. She can try the betamethasone cream that she uses on the other patches of eczema she has. Discussed with her that it thins the skin and she needs to use it sparingly. The vaginal atrophy is related to decrease in estrogen and is normal aging. She will try these things and she has follow-up with her PCP in September and her well exam with me in December. Problem Code: L30.9; Problem Code Type: ICD-10; MD Jim [address], [place], [address] , [facility] 4 12:05:57 Pain of left shoulder joint Active 2022 Problem Code: M25.512; Problem Code Type: ICD-10; MD Jim [address], [place], [address] , [facility] 4 12:05:57 Right Achilles tendinitis Active 2022 Problem Code: M76.61; Problem Code Type: ICD-10; MD Jim [address], [place], [address] , [facility] 4 12:05:57 Elevated blood-pressur e reading without diagnosis of hypertension Completed 201702/14/2023 Problem Code: R03.0; Problem Code Type: ICD-10; Not Available [facility] 3 05:18:42 Counseling Completed 202004/27/2022 Problem Code: Z71.89; Problem Code Type: ICD-10; Not Available [facility] 3 05:18:42 Asthma Completed 200702/14/2023 Not Available [facility] 3 05:18:43 Uncomplicated asthma Completed 200702/14/2023 04/19/2016 - Comments only - Abby Peña MD - She is stable on her current medications and no changes were made. Problem Code: J45.909; Problem Code Type: ICD-10; Not Available [facility] 3 05:18:43 Disorder of lip Completed 202004/27/2022 Problem Code: K13.0; Problem Code Type: ICD-10; Not Available [facility] 3 05:18:43 Abnormal auditory perception Completed 201202/14/2023 Not Available [facility] 3 05:18:43 Screening mammography Completed 201501/08/2023 Problem Code: Z12.31; Problem Code Type: ICD-10; Not Available [facility] 3 05:18:43 Osteoarthriti s of hip Completed 201102/14/2023 Problem Code: 715.95; Problem Code Type: ICD-9; Not Available [facility] 3 05:18:43 Screening mammography Completed 201701/08/2023 Problem Code: Z12.31; Problem Code Type: ICD-10; Not Available [facility] 3 05:18:43 Dysphonia Completed 202201/08/2023 Problem Code: R49.0; Problem Code Type: ICD-10; Not Available [facility] 3 05:18:44 Abdominal muscle pain Active [address] [place] [address] [place], [address] , [facility] 4 13:10:12 Gastritis Active 2023 NOREEN GALLARDO MA null, [facility] 4 12:01:58 Esophagitis Active 2023 NOREEN GALLARDO MA null, [facility] 4 12:02:12 Hiatal hernia Active 2023 NOREEN GALLARDO MA null, [facility] 4 12:02:46 Gastroesophag eal reflux disease without esophagitis Active 2023 NOREEN GALLARDO MA null, [facility] 4 12:16:02 Tibialis posterior tendinitis Active 2023 Stephanie Izaguirre RN null, [facility] 4 11:18:37 Leg length inequality Active 2023 Stephanie Izaguirre RN null, [facility] 4 11:18:50 Problem Notes None recorded. Medical Equipment None Reported. Medications Name Sig Start Date Stop Date Status Note LastModified by Organization Details LastModified Time Monistat 3 200 mg/5 gram (4 %) vaginal cream prn 09/14 completed Not Available Not Available Not Available Pepcid Complete 10 mg-800 mg-165 mg chewable tablet 1 prn 2015 active Not Available Not Available Not Avai lable albuterol sulfate 1.25 mg/3 mL solution for nebulizatio n 2 puffs po Q6hrs prn 04/19 completed Not Available Not Available Not Available sucralfate 1 gram tablet TAKE ONE TABLET BY MOUTH WITH EACH MEAL AND AT BEDTIME NEEDED FOR GERD active Not Available Not Available No t Available ciprofloxac in 500 mg tablet Take 1 tablet by mouth twice a day as directed take for traveler' s diarrhea. 04/27 completed Not Available Not Available Not Available omeprazole 40 mg capsule,del ayed release TAKE ONE CAPSULE BY MOUTH EVERY DAY 07/16 completed Not Available Not Available Not Available tramadol 50 mg tablet 1-2tabs at bedtime 02/04 completed Not Available Not Available Not Available triamcinolo ne acetonide 0.1 % topical cream active Not Available Not Available Not Available oxycodone-a cetaminophe n 5 mg-325 mg tablet 2 at bedtime 08/13 completed Not Available Not Available Not Available Metrogel Vaginal 0.75 % (37.5 mg/5 gram) gel AT BEDTIME 04/11 completed Not Available Not Available Not Available potassium citrate ER 10 mEq (1,080 mg) tablet,exte nded release Take 2 tabs 2 times daily 05/10 completed Not Available Not Available Not Available Bactroban 2 % topical ointment APPLY TID 07/23 completed Not Available Not Available Not Available Tylenol 500 mg tablet 2 tablets PO Q6H PRN 09/14 completed Not Available Not Available Not Available Topicort 0.25 % topical cream APPLY BID 04/06 completed Not Available Not Available Not Available pantoprazol e 40 mg tablet,minnie yed release TAKE ONE TABLET BY MOUTH EVERY DAY 01/09 completed Not Available Not Available Not Available clotrimazol e-betametha sone 1 %-0.05 % topical cream Apply a small amount to affected area twice a day 2020 active Not Available Not Available Not Avai lable lisinopril 10 mg tablet Take 1 tablet by mouth once a day 01/08 completed Not Available Not Available Not Available diclofenac potassium 50 mg tablet 1tab tid 08/13 completed Not Available Not Available Not Available omeprazole 20 mg capsule,del ayed release TAKE ONE CAPSULE BY MOUTH EVERY DAY active Not Available Not Available No t Available Coumadin 5 mg tablet 1 tab daily 08/13 completed Not Available Not Available Not Available albuterol sulfate HFA 90 mcg/actuati on aerosol inhaler Inhale 1 to 2 puffs by mouth every 4 to 6 hours as needed active Not Available Not Available No t Available losartan 50 mg-hydrochl orothiazide 12.5 mg tablet Take 1 tablet by mouth once a day as directed active Not Available Not Available No t Available Malarone 250 mg-100 mg tablet Take 1 tablet by mouth once a day as directed take 1 tablet a day beginning 1 to 2 days before travel 04/27 completed Not Available Not Available Not Available nabumetone 500 mg tablet 1tab twice daily 01/07 completed Not Available Not Available Not Available Albuterol Sulfate HFA 90 mcg/Actuati on aerosol inhaler 2 PUFFS q6h 03/23 completed Not Available Not Available Not Available Flovent HFA 110 mcg/actuati on aerosol inhaler Inhale 2 puffs by mouth twice daily as needed rinse mouth after use 2023 active Not Available Not Available Not Avai lable glucosamine -chondroiti n 2 tabs qd 2013 active Not Available Not Available Not Avai lable pantoprazol e 40 mg. Take one by mouth daily. 01/09 completed Not Available Not Available Not Available multivitami n 1 tab daily 04/06 completed Not Available Not Available Not Available CeraVe lotion 08/13 completed Not Available Not Available Not Available cholecalcif negrito (vitamin D3) 25 mcg (1,000 unit) tablet 1 tablet by mouth once a day 2013 active Not Available Not Available Not Avai lable glucosamine -msm-chondr oit-hrb 149-hyalur 500 mg-500 mg-66.7 mg tablet 2 tabs PO QD 2013 active Not Available Not Available Not Avai lable glucosamine 750 mg-chondroi tin-msm no1 625 mg-C 30 mg-saskia 1 mg tablet 2 tablet by mouth once a day 2013 active Not Available Not Available Not Avai lable magnesium citrate 125 mg capsule qam 2020 active Not Available Not Available Not Avai lable Acid Automatic Operator (omeprazole ) 20 mg capsule,del ayed release Take 40 mg by mouth once a day 07/16 completed Not Available Not Available Not Available magnesium citrate 100 mg capsule Take 3 capsules every day by oral route. active Not Available Not Available No t Available QuickVue At-Home COVID-19 Test kit USE FOR AT HOME TESTING 07/16 completed Not Available Not Available Not Available Paxlovid 150 mg-100 mg tablets in a dose pack (Renal Dose) USE DIRECTED 07/16 completed Not Available Not Available Not Available Vitals Date Recorded Body height Body mass index (BMI) Body weight Body temperature Oxygen saturation Oxygen saturation in Arterial blood by Pulse oximetry Heart rate Respiratory rate Systolic blood pressure Diastolic blood pressure Provider Name and Address Organization Details Last Updated DateTime 163.195 cm 31 kg/m2 70652.0 9 g 97.1 [degF] 95 % 95 % 82 /min 18 /min 138 mm[Hg] 80 mm[Hg] CHANTEL PEÑALOZA RN [facility] 12:02:27 Date Recorded Body height Systolic blood pressure Diastolic blood pressure Provider Name and Address Organization Details Last Updated DateTime 01/10/2024 163.195 cm 128 mm[Hg] 80 mm[Hg] JANNET PARK CMA [facility] 01/10/2024 08:25:06 Social History Question Answer Notes LastModified by Organizat ion Details LastModified Time Tobacco Smoking Status Former Smoker CHANTEL PEÑALOZA RN [facility], [facility] 07/16/2023 12:05:22 When Did You Quit Smoking? 16+yearssinc [email or web address] Information not available 07/16/2023 What Was The Date Of Your Most Recent Tobacco Screening? 07/16/2023 [email or web address] Information not available 07/16/2023 Has Tobacco Cessation Counseling Been Provided? No [email or web address] Information not available 07/16/2023 Do You Or Have You Ever Used Any Other Forms Of Tobacco Or Nicotine? No Information not available 07/16/2023 Sex: Female Functional Status None recorded. Mental Status None recorded. Family History Relationship Description Onset Age of this Age Resolved Age Notes Father Family history of he art failure Mother Family history of di sorder of lung Notes:*Problem: Mom - asthma . Dad - heart disease. Otherwise unremarkable. 03/31 Nothing new. Medical History No medical history recorded. Gynecological HistoryNo gynecological history recorded. Obstetrics History GPAL:G 0 P 0 0 0 0 Immunizations Vaccine Type Date Status Provider Name and Address Organization Details Recorded Time Td (adult), 5 Lf tetanus toxoid, preservative free, adsorbed 04/19/2016 completed Not Available [facility] 03/30/2023 05:10:00 Tdap 09/29/2005 completed Not Available [facility] 05:10:00 zoster live 06/15/2008 completed Not Available [facility] 03/30/2023 05:10:00 Pneumococcal conjugate PCV 13 05/26/2015 completed Not Available [facility] 03/30/2023 05:10:00 Influenza, high-dose, trivalent, PF 03/05/2018 completed Not Available [facility] 03/30/2023 05:10:01 Influenza, high-dose, trivalent, PF 04/16/2017 completed Not Available [facility] 03/30/2023 05:10:01 Td(adult) unspecified formulation 11/30/1998 completed Not Available [facility] 03/30/2023 05:10:01 Influenza, split virus, trivalent, preservative 03/22/2015 completed Not Available [facility] 03/30/2023 05:10:01 Influenza, split virus, trivalent, preservative 03/27/2016 completed Not Available [facility] 03/30/2023 05:10:02 Influenza, MDCK, quadrivalent, PF 03/27/2019 completed Not Available [facility] 03/30/2023 05:10:02 Influenza, high-dose, quadrivalent, PF 02/23/2021 completed Not Available [facility] 03/30/2023 05:10:02 COVID-19, mRNA, LNP-S, PF, 100 mcg/0.5mL dose or 50 mcg/0.25mL dose 07/07/2020 completed Not Available [facility] 03/30/2023 05:10:02 COVID-19, mRNA, LNP-S, PF, 100 mcg/0.5mL dose or 50 mcg/0.25mL dose 08/04/2020 completed Not Available [facility] 03/30/2023 05:10:02 COVID-19, mRNA, LNP-S, PF, 100 mcg/0.5mL dose or 50 mcg/0.25mL dose 08/26/2021 completed Not Available [facility] 03/30/2023 05:10:03 SARS-COV-2 (COVID-19) vaccine, UNSPECIFIED 02/07/2022 completed Not Available [facility] 03/30/2023 05:10:03 SARS-COV-2 (COVID-19) vaccine, UNSPECIFIED 03/14/2021 completed Not Available [facility] 03/30/2023 05:10:03 COVID-19, mRNA, LNP-S, bivalent, PF, 30 mcg/0.3 mL dose 2022 completed Not Available [facility] 03/30/20 05:10:03 pneumococcal polysaccharide PPV23 04/06/2014 completed Not Available [facility] 2022 05:10:03 pneumococcal polysaccharide PPV23 04/10/1983 completed Not Available [facility] 2022 05:10:04 Hep A, unspecified formulation 07/12/2006 completed Not Available [facility] 03/30/2023 05:10:04 Hep A, unspecified formulation 01/17/2007 completed Not Available [facility] 03/30/2023 05:10:04 influenza, unspecified formulation 02/19/2020 completed Not Available [facility] 03/30/2023 05:10:04 zoster recombinant 02/08/2023 completed JANNET UNDERWOOD REJECTOR null, [facility] 07/19/2023 11:00:03 SARS-COV-2 (COVID-19) vaccine, UNSPECIFIED 02/28/2023 completed JANNET PARK REJECTOR null, [facility]. 07/19/2023 11:02:29 Respiratory syncytial virus (RSV) MAB, unspecified 03/01/2023 completed JANNET PARK REJECTOR null, [facility] 07/19/2023 11:03:03 influenza, unspecified formulation 03/15/2023 completed JANNET PARK REJECTOR null, [facility] 07/19/2023 11:03:35 zoster recombinant 05/07/2023 completed JANNET UNDERWOOD REJECTOR null, [facility] 07/19/2023 11:03:54 Past Encounters Encounter ID Performer Location Encounter Start Date Encounter Closed Date Diagnosis/Indication Diagnosis SNOMED-CT Code [id number] ABBY PEÑA MD [address] [address] 07/16/2023 11:55:32 07/16/2023 12:34:03 Essential hypertension 57197025 Abdominal muscle pain 28 459958557679 [id number] JANNET PARK CMA [address] [address] 01/10/2024 08:19:37 01/10/2024 08:32:42 Essential hypertension 99252058 Idiopathic osteoarthritis 938161712 Pure hypercholesterolemia 247192459 Health Concerns Section Related Observation LastModified by Organization Detai ls LastModified Time None Recorded Concern Status LastModified by Organization Details LastModified Time None Recorded Advance Directives Directive None Recorded Payers Encounter Date Sequence Insurance Name Policy Number Policy Kim Covered Member ID Kim Member ID Guarantor Name 07/16/2023 1 MED[place] [facility] Evette Young [id number] Evette Young 07/16/2023 2 [employer] OPTIONS (MEDICARE SUPPLEMENT) Evette Young [id number] Evette Young 01/10/2024 1 [place] [facility] Evette Young [id number] Evette Young 01/10/2024 2 [employer] (MEDICARE SUPPLEMENT) Evette Young [id number] Evette Young Notes Date Note Type Note Provider Name and Address Organization Details Recorded Time 4 text/html HPI Notes: Arline comes in today to follow-up on her blood pressure. She states that when she is home her blood pressure for the most part is at goal she brings in several readings and her systolics for the most part have been under 136 and she did have 1 that was 141. Her diastolics have been in the 70s to 80s 1 at 94. She is currently using losartan hydrochlorothiazide with no side effects or problems she is taking it every day. She checks her blood pressure mostly in the morning after sitting quietly for 15 minutes and being relaxed. She denies any headaches weakness chest pain shortness of breath change her vision. Patient reports that she has been having some abdominal pain mostly on the right. She did have an episode prior to this all starting where she got a sudden 6 severe pain across the full abdomen just underneath the rib cage that went away but she was left with a tenderness to the right side. She had no change in her bowels or urination. She had no bloody stools or black tarry stools no increased reflux disease. She states that when she sits it is most problematic when she sits up or tries to roll over to 1 side or the other whenever she engages her abdominal muscles. ABBY PEÑA MD [address], [place], [address], [facility]. 07/16/2023 13:11:38 OBGyn Episode No OBEpisode recorded.
--- OUTSIDE RECORDS SUMMARY | 2024-01-10 08:43 | XMS_ITS | Continuity of Care Document ---
Author Organization [facility] Address [address] [place] [address] Assessment No assessment recorded. Plan of Treatment Reminders Order Date Submit Date Provider Last Modified By Organization Details Last Modified Time Details Appointments Nurse Visit 30 2023 08:30A M Not available Not available Not available Medicare Annual Wellness 40 2023 11:30A M Not available Not available Not available Lab vitamin D, 25-hydrox y, total, serum - 1Y, 1P 2023 024 [facility] (Registration ), [address] [place] [address] [place], [address], 01/10/2024 08:35:22 lipid panel, serum - 1Y, 1P 2023 024 [facility] (Registration ), [address] [place] [address] [place], [address], 01/10/2024 08:35:22 CMP, serum or plasma - 1Y, 1P 2023 024 [facility] (Registration ), [address] [place] [address] [place], [address], 01/10/2024 08:35:22 CBC - 1Y, 1P 2023 024 [facility] (Registration ), [address] [place] [address] [place], [address], 01/10/2024 08:35:22 Referral None recorded. Procedures None recorded. Surgeries None recorded. Imaging None recorded. Medication Orders None recorded. Patient TargetsNo targets recorded. Patient InstructionsNo instructions recorded. Reason for Referral None Reported. Problems Name Status Onset Date Resolution Date Notes Provider Name and Address Organization Details Recorded Time Pure hypercholeste rolemia Active 200106/09/2020 - Comments only - Shirley Peña MD - I did go over [...] Code Type: ICD-10; MD [address], [place], [address] , [facility] 4 12:05:57 Mild intermittent asthma Active 200706/09/2020 - Comments only - Shirley Peña MD - Patient has mild intermittent [...] Code Type: ICD-10; MD [address], [place], [address] , [facility] 4 12:05:57 Sensorineural hearing loss Active 201201/08/2023 - Comments only - Shirley Peña MD - Patient reports that she [...] Code Type: ICD-10; MD [address], [place], [address] , [facility] 4 12:05:57 Idiopathic osteoarthriti s Active 201106/26/2022 - Comments only - Shirley Peña MD - Patient is status post [...] Code Type: ICD-10; MD Jim [address], [place], [address] , [facility] 12:05:57 Adult health examination Completed 201506/02/2015 Problem Code: Z00.00; Problem Code Type: ICD-10; MD Jim [address], [place], [address] , [facility] 12:05:57 Adult health examination Active 201501/08/2023 - Comments only - Shirley Peña MD - Evette Young is a [...] Code: Z00.00; Problem Code Type: ICD-10; MD Jmi [address], [place], [address] , [facility] 12:05:57 Pain of right knee joint Active 2017 Problem Code: M25.561; Problem Code Type: ICD-10; MD Jim [address], [place], [address] , [facility] 12:05:57 Essential hypertension Active 201701/08/2023 - Comments only - Shirley Peña MD - She brings in blood [...] Code Type: ICD-10; MD Jim [address], [place], [address] , [facility] 4 12:05:57 Cramp in lower limb associated with sleep Active 202006/09/2020 - Comments only - Shirley Peña MD - Patient reports that he [...] Code Type: ICD-10; MD Jim [address], [place], [address] , [facility] 4 12:05:57 Neck pain Active 2020 Problem Code: M54.2; Problem Code Type: ICD-10; MD Jim [address], [place], [address] , [facility] 4 12:05:57 Upper respiratory tract infection caused by Influenza virus Completed 202105/18/2022 Problem Code: J10.1; Problem Code Type: ICD-10; Not Available [facility] 3 05:18:41 Exacerbation of intermittent asthma Completed 202105/18/2022 Problem Code: J45.21; Problem Code Type: ICD-10; Not Available [facility] 3 05:18:42 Atrophic vaginitis Active 2022 Problem Code: N95.2; Problem Code Type: ICD-10; MD Jim [address], [place], [address] , [facility] 4 12:05:57 Eczema Active 202209/01/2022 - Comments only - Shirley Peña MD - Discussed with the patient [...] Code Type: ICD-10; MD Jim [address], [place], [address] , [facility] 4 12:05:57 Pain of left shoulder joint Active 2022 Problem Code: M25.512; Problem Code Type: ICD-10; MD Jim [address], [place], [address] , [facility] 4 12:05:57 Right Achilles tendinitis Active 2022 Problem Code: M76.61; Problem Code Type: ICD-10; MD Jim [address], [facility] [address] , [facility] 4 12:05:57 Elevated blood-pressur e reading without diagnosis of hypertension Completed 201702/14/2023 Problem Code: R03.0; Problem Code Type: ICD-10; Not Available [facility] 3 05:18:42 Counseling Completed 202004/27/2022 Problem Code: Z71.89; Problem Code Type: ICD-10; Not Available [facility] 3 05:18:42 Asthma Completed 200702/14/2023 Not Available [facility] 3 05:18:43 Uncomplicated asthma Completed 200702/14/2023 04/19/2016 - Comments only - Shirley Peña MD - She is stable on her current medications and no changes were made. Problem Code: J45.909; Problem Code Type: ICD-10; Not Available [facility] 3 05:18:43 Disorder of lip Completed 202004/27/2022 Problem Code: K13.0; Problem Code Type: ICD-10; Not Available [facility] 3 05:18:43 Abnormal auditory perception Completed 201202/14/2023 Not Available [facility] 3 05:18:43 Screening mammography Completed 201501/08/2023 Problem Code: Z12.31; Problem Code Type: ICD-10; Not Available [facility] 3 05:18:43 Osteoarthriti s of hip Completed 201102/14/2023 Problem Code: 715.95; Problem Code Type: ICD-9; Not Available [facility] 3 05:18:43 Screening mammography Completed 201701/08/2023 Problem Code: Z12.31; Problem Code Type: ICD-10; Not Available [facility] 3 05:18:43 Dysphonia Completed 202201/08/2023 Problem Code: R49.0; Problem Code Type: ICD-10; Not Available [facility] 3 05:18:44 Abdominal muscle pain Active [address], [place], [address] , [facility] 4 13:10:12 Gastritis Active 2023 NOREEN GALLARDO MA null, [facility] 4 12:01:58 Esophagitis Active 2023 NOREEN GALLARDO MA null, [facility] 4 12:02:12 Hiatal hernia Active 2023 NOREEN GALLARDO MA null, [facility] 4 12:02:46 Gastroesophag eal reflux disease without esophagitis Active 2023 NOREEN GALLARDO MA null, [facility] 4 12:16:02 Tibialis posterior tendinitis Active 2023 Stephanie Izaguirre RN null, [facility] 4 11:18:37 Leg length inequality Active 2023 Stephanie Izaguirre RN null, [facility] 4 11:18:50 Problem Notes None recorded. Medical [...] Available Not Available Not Avai lable Acid Market Gardener (omeprazole ) 20 mg capsule,del ayed release [...] Not Available Vitals Date Recorded Body height Systolic blood pressure Diastolic blood pressure Provider Name and Address Organization Details Last Updated DateTime 01/10/2024 163.195 cm 128 mm[Hg] 80 mm[Hg] JANNET PARK CMA [facility] 01/10/2024 08:25:06 Social History Question Answer Notes LastModified by Organizat ion Details LastModified Time Tobacco Smoking Status Former Smoker CHANTEL PEÑALOZA RN [facility], [facility] 07/16/2023 12:05:22 When Did You Quit Smoking? 16+yearssinc elastcigaret te [email or web address] Information not available 07/16/2023 What Was The Date Of Your Most Recent Tobacco Screening? 07/16/2023 Information not available 07/16/2023 Has Tobacco Cessation Counseling Been Provided? No [email or web address] Information not available 07/16/2023 Do You Or [...] preservative free, adsorbed 04/19/2016 completed Not Available [facility] 03/30/2023 05:10:00 Tdap 09/29/2005 completed Not Available [facility] 05:10:00 zoster live 06/15/2008 completed Not Available [facility] 03/30/2023 05:10:00 Pneumococcal conjugate PCV 13 05/26/2015 completed Not Available [facility] 03/30/2023 05:10:00 Influenza, high-dose, trivalent, PF 03/05/2018 completed Not Available [facility] 03/30/2023 05:10:01 Influenza, high-dose, trivalent, PF 04/16/2017 completed Not Available [facility] 03/30/2023 05:10:01 Td(adult) unspecified formulation 11/30/1998 completed Not Available [facility] 03/30/2023 05:10:01 Influenza, split virus, trivalent, preservative 03/22/2015 completed Not Available [facility] 03/30/2023 05:10:01 Influenza, split virus, trivalent, preservative 03/27/2016 completed Not Available [facility] 03/30/2023 05:10:02 Influenza, MDCK, quadrivalent, PF 03/27/2019 completed Not Available [facility] 03/30/2023 05:10:02 Influenza, high-dose, quadrivalent, PF 02/23/2021 completed Not Available [facility] 03/30/2023 05:10:02 COVID-19, mRNA, LNP-S, PF, 100 mcg/0.5mL dose or 50 mcg/0.25mL dose 07/07/2020 completed Not Available [facility] 03/30/2023 05:10:02 COVID-19, mRNA, LNP-S, PF, 100 mcg/0.5mL dose or 50 mcg/0.25mL dose 08/04/2020 completed Not Available [facility] 03/30/2023 05:10:02 COVID-19, mRNA, LNP-S, PF, 100 mcg/0.5mL dose or 50 mcg/0.25mL dose 08/26/2021 completed Not Available [facility] 03/30/2023 05:10:03 SARS-COV-2 (COVID-19) vaccine, UNSPECIFIED 02/07/2022 completed Not Available [facility] 03/30/2023 05:10:03 SARS-COV-2 (COVID-19) vaccine, UNSPECIFIED 03/14/2021 completed Not Available [facility] 03/30/2023 05:10:03 COVID-19, mRNA, LNP-S, bivalent, PF, 30 mcg/0.3 mL dose 2022 completed Not Available [facility] 03/30/20 05:10:03 pneumococcal polysaccharide PPV23 04/06/2014 completed Not Available [facility] 2022 05:10:03 pneumococcal polysaccharide PPV23 04/10/1983 completed Not Available [facility] 2022 05:10:04 Hep A, unspecified formulation 07/12/2006 completed Not Available [facility] 03/30/2023 05:10:04 Hep A, unspecified formulation 01/17/2007 completed Not Available [facility] 03/30/2023 05:10:04 influenza, unspecified formulation 02/19/2020 completed Not Available [facility] 03/30/2023 05:10:04 zoster recombinant 02/08/2023 completed JANNET ANTOINE ATH, INORGANIC CHEMICAL TECHNICIAN null, [facility] 07/19/2023 11:00:03 SARS-COV-2 (COVID-19) vaccine, UNSPECIFIED 02/28/2023 completed JANNET PARK INORGANIC CHEMICAL TECHNICIAN null, [facility] 07/19/2023 11:02:29 Respiratory syncytial virus (RSV) MAB, unspecified 03/01/2023 completed JANNET PARK INORGANIC CHEMICAL TECHNICIAN null, [facility] 07/19/2023 11:03:03 influenza, unspecified formulation 03/15/2023 completed JANNET PARK INORGANIC CHEMICAL TECHNICIAN null, [facility] 07/19/2023 11:03:35 zoster recombinant 05/07/2023 completed JANNET UNDERWOOD, INORGANIC CHEMICAL TECHNICIAN null, [facility] 07/19/2023 11:03:54 Past Encounters Encounter ID Performer Location Encounter Start Date Encounter Closed Date Diagnosis/Indication Diagnosis SNOMED-CT Code [id number] JANNET PARK CMA [address] [address] 01/10/2024 08:19:37 01/10/2024 08:32:42 Essential hypertension 58476631 Idiopathic osteoarthritis 641224879 Pure hypercholesterolemia 420468520 Health Concerns Section Related Observation LastModified by Organization Detai ls LastModified Time None Recorded Concern Status LastModified by Organization Details LastModified Time None Recorded Payers Encounter Date Sequence Insurance Name Policy Number Policy Kim Covered Member ID Kim Member ID Guarantor Name 01/10/2024 1 [place] [employer] Evette Young [id number] Evette Young 01/10/2024 2 [facility] OPT[facility] (MEDICARE SUPPLEMENT) Evette Young [id number] Evette Young OBGyn Episode No OBEpisode recorded.
--- OUTSIDE RECORDS SUMMARY | 2024-01-10 08:43 | XMS_ITS | Encounter Summary ---
Author Organization [facility] Address [address] [place] [address] Care Team Providers Care Director Of Academic Name Role Phone Unavailable Primary Care Provider Unavailabl e Encounter Details Date Type Department Care Team (Late st Contact Info) Description 06/05/2002 Results Only [facility] - Maple conversion [address] [place] [address] Lyle Oliver, DO [address] [facility] [address] [place] [address] Social History Tobacco Use Types Packs/Day Years Used Date Smoking Tobacco: Never Assessed Sex and Gender Information Value Date Recorded Sex Assigned at Not on file Gender Identity Not on file Sexual Orientation Not on file documented as of this encounter Plan of Treatment Not on file documented as of this encounter Procedures Procedure Name Priority Date/Time Associated Diagnosis Comments SURGICAL PATHOLOGY Routine 06/05/2002 0:00 EST documented in this encounter Results * SURGICAL PATHOLOGY (06/05/2002 0:00 EST) Pathology Report: SURGICAL PATHOLOGY REPORT Reports generated via electronic interface contain original data; however they are lacking the format of the original report. Caution should be taken when reading/interpreti ng unformatted reports. Name: ? EVETTE ORTIZ ? Accession #: ? [id number] ? : ? 1945 (Age: 56) ??F ? Collect Date: ? 06/05/2002 ? Location: ? [facility] ? Receive Date: ? 06/07/2002 ? Provider: LYLE OLIVER DO Copy to: ARUN FERGUSON CABIN WORKER JEFF MEADOWS MD ? Final Pathologic Diagnosis: ? Colon, 25.0 cm, polyp, biopsy: - Tubular adenoma. Document reviewed and electronically signed by: CIRILO CHOWDHURY MD Report ??Date: 06/09/2002 17:12 By the signature above, the attending physician certifies that he/she has personally conducted a gross and/or microscopic examination of the described specimens and rendered or confirmed the above diagnosis. Specimen(s) Received: ? Polyp at 25 cm Clinical History: ? Screening Gross Description: ? Received in Hollande' s fixative labelled Hector and polyp at 25 cm is a single fragment of soft tissue which measures 0.3 x 0.2 x 0.2 cm. ??The specimen is submitted entirely as one cassette. ??(Dr. Roe)/[facility] End of Report [facility] 06/05/2002 06/07/2002 10: 37 EST Lyle Oliver DO PATHOLOGY ORDER ARLET [facility] [address] [place] [address] documented in this encounter Visit Diagnoses Not on filedocumented in this encounter
--- OUTSIDE RECORDS SUMMARY | 2024-01-10 08:43 | XMS_ITS | Encounter Summary ---
Author Organization [facility] Address [address] [place] [address] Care Team Providers Care Collections Clerk Name Role Phone Unknown, Provider Primary Care Provider Encounter Details Date Type Department Care Team (Late st Contact Info) Description 08/10/2023 Lab Requisition [facility] - [facility] [address] [place] [address] Maria Eugenia Vazquez, DO [address] [address] [place], [place] [id number] Diaphragmatic hernia without obstruction or gangrene; Gastro-esophageal reflux disease with esophagitis, without bleeding; Gastro-esophageal reflux disease without esophagitis Social History Tobacco Use Types Packs/Day Years Used Date Smoking Tobacco: Never Assessed Sex and Gender Information Value Date Recorded Sex Assigned at Not on file Gender Identity Not on file Sexual Orientation Not on file documented as of this encounter Plan of Treatment Not on file documented as of this encounter Procedures Procedure Name Priority Date/Time Associated Diagnosis Comments SURGICAL PATHOLOGY Today 08/10/2023 11 :09 EDT Diaphragmatic hernia without obstruction or gangrene Gastro-esophageal reflux disease with esophagitis, without bleeding Gastro-esophageal reflux disease without esophagitis documented in this encounter Results * SURGICAL PATHOLOGY (08/10/2023 11:09 EDT) Note to Patient The following pathology results have been interpreted by your pathologist and may be available to you before your health provider has had the opportunity to review them. Please allow time for your provider to receive these results and explore management options, if applicable. 08/14/2023 10:59 EDT [facility] Final Diagnosis A. DUODENUM, BULB, BIOPSY: - Duodenal mucosa with no significant diagnostic abnormalities. B. STOMACH, ANTRUM, BIOPSY: - Focal chronic active gastritis in a background of reactive (chemical) gastropathy. - Helicobacter pylori is negative on immunohistochemist ry. See comment. - Negative for intestinal metaplasia. C. STOMACH, GREATER CURVATURE, BIOPSY: - Gastric oxyntic type mucosa with no significant diagnostic abnormalities. - Negative for Helicobacter pylori on H&E stained sections. D. GASTROESOPHAGEAL JUNCTION, BIOPSY: - Squamocolumnar junctional mucosa with moderate reactive changes. - Negative for intestinal metaplasia. 08/14/2023 10:59 [facility] Diagnosis Comment Immunoperoxidase stains were performed on this case to further characterize the lesion. ANTIBODY(CLONE)(BL OCK):RESULT H pylori (Rabbit Monoclonal (SP48), [place]) (B1): Negative NOTE: One or more of the reagents used in immunoperoxidase testing in this case may not have been cleared or approved by the U.S. Food and Drug Administration (FDA). The FDA has determined that such clearance or approval is not necessary. These tests are used for clinical purposes. They should not be regarded as investigational or for research. These reagents' performance characteristics have been determined by [facility] and/or by the referring laboratory. The positive and negative controls worked appropriately. If immunoperoxidase staining has been performed on alcohol fixed cytology specimens, which has not been fully validated, the assays should be interpreted with caution and correlated with clinical data. This laboratory is certified under the Clinical Laboratory Improvement Amendments of 1988 (CLIA-88) as qualified to perform high complexity clinical laboratory testing. 08/14/2023 10:59 [facility] Attestation By the signature below, the attending physician certifies that they have 1) personally conducted a gross and/or microscopic examination of the described specimen(s), and/or personally interpreted the results of laboratory testing of the described specimen(s), and 2) personally rendered or confirmed the above diagnosis. 08/14/2023 10:59 [facility] at 1059 Clinical History GERD, moderate hiatal hernia, gastritis 08/14/2023 10:59 [facility] Gross Description A. Received in formalin labelled with proper patient identification (initials W, E) and 1. Duodenal bulb bx is a single garcia-brown tissue (0.3 x 0.2 x 0.2 cm). Submitted intact in A1. B. Received in formalin labelled with proper patient identification (initials W, E) and 2. Antrum bx is a single garcia tissue (0.4 x 0.3 x 0.1 cm). Submitted intact in B1. C. Received in formalin labelled with proper patient identification (initials W, E) and 3. Greater curve bx is a single garcia-brown tissue (0.6 x 0.2 x 0.1 cm). Submitted intact in C1. D. Received in formalin labelled with proper patient identification (initials W, E) and 4. GE junction bx is a single transparent garcia-white wispy tissue (0.4 x 0.1 by less than 0.1 cm). Submitted intact in D1. Debby Piña 08/12/2023 10:17 08/14/2023 10:59 EDT [facility] Performing Lab [facility] 10:59 EDT [facility] Scanned Images 08/14/2023 10:59 EDT [facility] Tissue ESOPHAGEAL STRUCTURE / Unknown 08/10/2023 11:09 EDT 08/10/2023 17:09 EDT Tissue specimen (specimen) STOMACH STRUCTURE / Unknown 08/10/2023 11:09 EDT 08/10/2023 17:09 EDT Tissue specimen (specimen) STOMACH STRUCTURE / Unknown 08/10/2023 11:09 EDT 08/10/2023 17:09 EDT Tissue specimen (specimen) ESOPHAGEAL STRUCTURE / Unknown 08/10/2023 11:09 EDT 08/10/2023 17:09 EDT Maria Eugenia Vazquez DO PATHOLOGY ORDERABLES [facility] [address] [place] [address] documented in this encounter Visit Diagnoses Diagnosis Diaphragmatic hernia without obstruction or gangrene Diaphragmatic hernia without mention of obstruction or gangrene Gastro-esophageal reflux disease with esophagitis, without bleeding Gastro-esophageal reflux disease without esophagitis Esophageal reflux documented in this encounter Care Teams Collections Clerk Relationship Specialty Start Date End Date Unknown, Provider, PCP - General 10/20/10 documented as of this encounter
--- OUTSIDE RECORDS SUMMARY | 2024-01-10 08:43 | XMS_ITS | Encounter Summary ---
Author Organization [facility] Address [address] [place] [address] Care Team Providers Care Waiter And Cashier Name Role Phone Unavailable Primary Care Provider Unavailabl e Encounter Details Date Type Department Care Team (Late st Contact Info) Description 11/27/2007 Before PRISM Converted Visit (Maple) [facility] - Maple conversion [address] [place] [address] Arun Yun FNP [address] [place], [place] [phone] Social History Tobacco Use Types Packs/Day Years Used Date Smoking Tobacco: Never Assessed Sex and Gender Information Value Date Recorded Sex Assigned at Not on file Gender Identity Not on file Sexual Orientation Not on file documented as of this encounter Plan of Treatment Not on file documented as of this encounter Procedures Procedure Name Priority Date/Time Associated Diagnosis Comments CYTOPATHOLOGY Routine 11/27/2007 0:00 EDT documented in this encounter Results * CYTOPATHOLOGY (11/27/2007 0:00 EDT) Pathology Report: CYTOPATHOLOGY REPORT ? Reports generated via electronic interface contain original data; ? however they are lacking the format of the original report. ? Caution should be taken when reading/interpreti ng unformatted reports. ? Name: ? EVETTE ORTIZ ? Accession #: ? [id number] ? : ? 1945 (Age: 62) ??F ?Collect Date: ? 11/27/2007 ? Location: ? [facility] ? Receive Date: ? 11/28/2007 ? Provider: ?ARUN DELAROSA ? Copy to: ? Specimen/Source: ?ThinPrep Pap Test, Cervix/Endocervix, processed on Cytyc ThinPrep Imaging System, with manual evaluation ? Last Menstrual Period: ? CIPRIANO ? Other: ? HPVA - HPV testing requested if ASC-US on the current ThinPrep Pap test. ? SPECIMEN ADEQUACY ? Satisfactory for Evaluation ? - transformation zone component present ? GENERAL CATEGORIZATION ? Negative for Intraepithelial Lesion or Malignancy ? INTERPRETATION ? Reactive cellular changes associated with inflammation present (includes ?? repair). ? Document reviewed and electronically signed by: ? Gladwyn Fortinoman, MBBCh ? Report Date: ??12/06/2007 17:04 ? End of Report ? [facility] 11/27/2007 11/28/2007 Arun Yun STAFF REGISTERED NURSE PATHOLOGY ORDERABLES [facility] [address] [place] [address] documented in this encounter Visit Diagnoses Not on filedocumented in this encounter
--- OUTSIDE RECORDS SUMMARY | 2024-01-10 08:43 | XMS_ITS | Encounter Summary ---
Author Organization [facility] Address [address] [place] [address] Care Team Providers Care Corrugator Machine Operator Name Role Phone Unavailable Primary Care Provider Unavailabl e Encounter Details Date Type Department Care Team (Late st Contact Info) Description 03/26/2003 Results Only [facility] [address] [place] [address] Arun Yun FNP [address] [place], [place] [phone] Social History Tobacco Use Types Packs/Day Years Used Date Smoking Tobacco: Never Assessed Sex and Gender Information Value Date Recorded Sex Assigned at Not on file Gender Identity Not on file Sexual Orientation Not on file documented as of this encounter Plan of Treatment Not on file documented as of this encounter Procedures Procedure Name Priority Date/Time Associated Diagnosis Comments CYTOPATHOLOGY Routine 03/26/2003 0:00 EST documented in this encounter Results * CYTOPATHOLOGY (03/26/2003 0:00 EST) Pathology Report: CYTOPATHOLOGY REPORT Reports generated via electronic interface contain original data; however they are lacking the format of the original report. Caution should be taken when reading/interpreti ng unformatted reports. Name: ? EVETTE ORTIZ ? Accession #: ? [id number] : ? 1945 (Age: 57) ??F ?Collect Date: ? 03/26/2003 Location: ? [facility] ? Receive Date: ? 03/30/2003 Provider: ?ARUN YUN FRONT OFFICE AGENT Copy to: ? Specimen/Source: ?ThinPrep Pap Test, Cervix/Endocervix Last Menstrual Period: ? CIPRIANO ? SPECIMEN ADEQUACY ? Satisfactory for Evaluation - transformation zone component present GENERAL CATEGORIZATION ? Negative for Intraepithelial Lesion or Malignancy ? Document reviewed and electronically signed by: ? UNIQUE Llamas(ASCP) ? Report Date: ??04/07/2003 06:39 End of Report [facility] 03/26/2003 03/30/2003 Arun Yun FRONT OFFICE AGENT PATHOLOGY ORDERABLES [facility] [address] [place] [address] documented in this encounter Visit Diagnoses Not on filedocumented in this encounter
--- OUTSIDE RECORDS SUMMARY | 2024-01-10 08:43 | XMS_ITS | Clinical Summary ---
[facility] [place] [address] Care Team Providers Care [employer] Name Role Phone Shirley Peña MD Primary Care Provider [phone] Allergies Active Allergy Reactions Criticality Noted Date Comments Pkdmlwim-Sjwdktatpp-Yczistvwg Rash 2020 Medications Medication Sig Dispensed Refills Start Date End Date Status albuterol (PROVENTIL HFA;VENTOLIN HFA) 90 mcg/actuation HFA Aerosol Inhaler Inhale 2 puffs into the lungs every 4 hours as needed for Wheezing. Use with spacer Active GLUCOSAM SUL NA/CHONDR TOLEDO A NA (GLUCOSAMINE & CHONDROIT SUL.NA ORAL) Take by mouth. 1700/1000 Takes two daily Active cholecalciferol, Vitamin D3, 1,000 unit Tablet Take by mouth daily. Active MAGNESIUM CITRATE ORAL Take by mouth. Active triamcinolone (KENALOG) 0.025 % Cream Apply topically as needed. 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 Social History Tobacco Use Types Packs/Day Years Used Date Smoking Tobacco: Former Cigarettes Sex and Gender Information Value Date Recorded Sex Assigned at Not on file Gender Identity Not on file Sexual Orientation Not on file Last Filed Vital Signs Vital Sign Reading [...] - - Body Mass Index - - Plan of Treatment Health Maintenance Due Date Last Done Comments Hepatitis C Screening 09/12/1965 Tdap adult 09/12/1966 Tetanus vaccine 09/12/1966 Zoster vaccine (1 of 2) 09/12/1997 Advance Directive 09/12/2002 Bone Density Scan 09/12/2012 Pneumoccocal Vaccine: 65+ (1 of 1 - PCV) 09/12/2012 Covid-19 Vaccine (1 - 2022- season) 2023 Influenza (Flu) vaccine (1 o f 1 - Influenza standard series) 01/20/2024 Care Teams [employer] Relationship Specialty Start Date End Date Shirley Peña MD [address] [place], [place] [phone] PCP - General Family Medicine 03/21/21
[2024-01-10 14:53] LABS: HCT 42.3 % (36.0-46.0); MCH 32.9 pg (27.0-33.0); MCHC 33.1 % (32.0-36.0); MCV 100 fL (80-95); MPV 9.7 fL (8.0-11.0); Platelet Count 279 10^3/uL (130-400); RBC 4.25 10^6/uL (3.93-5.22); RDW 12.9 % (11.7-14.6); WBC 5.57 10^3/uL (4.4-10.8)
[2024-01-10 16:01] LABS: ALT 30 U/L (14-59); AST 23 U/L (15-37); Albumin 3.7 g/dL (3.4-5.0); Alkaline Phosphatase 91 U/L (46-116); BUN 17 mg/dL (7-18); CREATININE 0.9 mg/dL (0.55-1.02); Calcium 9.6 mg/dL (8.5-10.1); Calculated LDL 123 mg/dL (<100); Chloride 102 mmol/L (98-107); Cholesterol 241 mg/dL (<200); Estimated GFR 66.26 (mL/min/1.73m2); Glucose 92 mg/dL (74-106); HDL Cholesterol 83 mg/dL (40-60); Potassium 4.1 mmol/L (3.5-5.1); Sodium 140 mmol/L (136-145); Total Protein 7.1 g/dL (6.4-8.2); Triglyceride 176 mg/dL (<150); Vitamin D 25 Total 41.1 ng/mL (30-100)
== END 2024-01-10 08:42 | disposition home or self-care (01) ==
LOC: NCHCN 08:41
PROVIDERS: PCP Family Medicine; Visit Provider Family Medicine
DX: E78.00 Pure hypercholesterolemia, unspecified (principal); I10 Essential (primary) hypertension; M19.09 Primary osteoarthritis, other specified site
CPT/HCPCS: 80053; 80061; 82306; 85027

== ENCOUNTER 2024-03-10 01:52 | Outpatient (CLI) | payer MEDICARE, SELFPAY ==
--- NOTE | 2024-03-10 | DI.DEXA_ITS ---
Exam(s) XR DEXA BONE DENSITY W/WO TIERRA EXAM: XR DEXA BONE DENSITY W/WO TIERRA CLINICAL HISTORY: Asymptomatic menopausal state, Z78.0,SCREENING FOR OSTEOPOROSIS TECHNIQUE: COMPARISON: DX from 07/07/2009 FINDINGS: Lateral Spine Image: Unremarkable. No compression deformities identified. Left forearm hip: Total T-Score: -3.0. This compares to -1.3 on the prior examination. Total Z-Score: 0.4 T- and Z-scores: Findings are consistent with osteoporosis. Lumbar Spine: Total T-Score: 1.0. Compares to 0.6 on the prior examination. Total Z-Score: 3.5 T- and Z-scores: Within normal limits. IMPRESSION: Osteoporosis in the left forearm.
== END 2024-03-10 02:12 ==
LOC: DI 01:52
PROVIDERS: PCP Family Medicine; Visit Provider Family Medicine
DX: Z78.0 Asymptomatic menopausal state (principal); Z13.820 Encounter for screening for osteoporosis; M81.0 Age-related osteoporosis without current pathological fracture
CPT/HCPCS: 77080

== ENCOUNTER 2025-03-05 12:20 | Outpatient (REF) | payer MEDICARE, SELFPAY ==
[2025-03-05 15:07] LABS: HCT 40.9 % (36.0-46.0); HGB 13.6 g/dL (11.2-15.7); MCH 32.9 pg (27.0-33.0); MCHC 33.3 % (32.0-36.0); MCV 99 fL (80-95); MPV 9.7 fL (8.0-11.0); Platelet Count 289 10^3/uL (130-400); RBC 4.13 10^6/uL (3.93-5.22); RDW 12.4 % (11.7-14.6); RDW-SD 45.3 fL; WBC 5.19 10^3/uL (4.4-10.8)
[2025-03-05 15:45] LABS: ALT 27 U/L (14-59); AST 21 U/L (15-37); Albumin 3.8 g/dL (3.4-5.0); Alkaline Phosphatase 86 U/L (46-116); Anion Gap 11.1 mmol/L (3-11); BUN 14 mg/dL (7-18); Bilirubin, Total 0.7 mg/dL (0.2-1.0); CO2 26.9 mmol/L (21.0-32.0); Calcium 9.8 mg/dL (8.5-10.1); Calculated LDL 143 mg/dL (<100); Chloride 99 mmol/L (98-107); Cholesterol 253 mg/dL (<200); Estimated GFR 65.84 (mL/min/1.73m2); Glucose 91 mg/dL (74-106); HDL Cholesterol 82 mg/dL (>or=50); Magnesium 2.3 mg/dL (1.8-2.4); Potassium 3.8 mmol/L (3.5-5.1); Sodium 137 mmol/L (136-145); Total Protein 7.2 g/dL (6.4-8.2); Triglyceride 144 mg/dL (<150)
== END 2025-03-05 12:21 | disposition home or self-care (01) ==
LOC: NCHCN 12:20
PROVIDERS: PCP Family Medicine
DX: Z00.00 Encounter for general adult medical examination without abnormal findings (principal)
CPT/HCPCS: 80053; 80061; 85027; 83735

== ENCOUNTER 2025-03-11 15:27 | Outpatient (REF) | payer MEDICARE, SELFPAY ==
[2025-03-11 17:35] LABS: Vitamin D 25 Total 45 ng/mL (30-100)
[2025-03-11 17:40] LABS: COMMENT (LAB VIEW ONLY) 30.85 mg/dL; Microalb ug/mg Crea 9.1 ug/mg Cr
== END 2025-03-11 15:28 | disposition home or self-care (01) ==
LOC: NCHCN 15:27
PROVIDERS: PCP Family Medicine; Visit Provider Family Medicine
DX: Z00.00 Encounter for general adult medical examination without abnormal findings (principal); E55.9 Vitamin D deficiency, unspecified
CPT/HCPCS: 82306; 82043; 82570